=== PATIENT | female | born 1975 | race African-American/Black ===

== ENCOUNTER 2017-07-05 16:26 | Inpatient (IN) | payer OTHER ==
[2017-07-05 17:20] VITALS: BMI 32.4
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
[2017-07-05] MEDS ORDERED: P-EPHED 60MG/TRIPROLIDI 2.5MG TABLET PO PRN (18:02)
[2017-07-05] MEDS ORDERED: MAG HYDROX/AL HYDROX/SIMETH 30 ML UNIT-DOSE CUP PO PRN (18:02)
[2017-07-05] MEDS ORDERED: MENTHOL/PHENOL 1 EACH UD MM PRN (18:02)
[2017-07-05] MEDS ORDERED: IBUPROFEN 400 MG TABLET (FP) PO PRN (18:02)
[2017-07-05] MEDS ORDERED: MAGNESIUM HYDROX 2400MG/30ML ORAL SUSPENSION 30 ML CUP PO PRN (18:02)
[2017-07-05] MEDS ORDERED: MAGNESIUM CITRATE 300 ML BOTTLE PO PRN (18:02)
[2017-07-05] MEDS ORDERED: guaiFENesin/D-METHORPHAN HB 10 ML UNIT-DOSE CUPS PO PRN (18:02)
[2017-07-05] MEDS ORDERED: ALBUTEROL SO4 18 GM HFA INHALER IH PRN (18:04)
[2017-07-05] MEDS ORDERED: NYSTATIN 100,000 UNIT/GM TOPICAL CREAM 15 GM TUBE TP SCH (22:00)
[2017-07-05] MEDS ORDERED: hydrOXYzine HCL 25 MG TABLET (FP) PO SCH (22:00)
[2017-07-05] MEDS ORDERED: TUBERCULIN PPD 5 TU/0.1ML VIAL ID ONE (23:03)
[2017-07-05 23:21] LABS: URINE APPEARANCE CLOUDY; URINE BILIRUBIN NEGATIVE (NEGATIVE); URINE BLOOD NEGATIVE (NEGATIVE); URINE COLOR YELLOW; URINE GLUCOSE (UA) NEGATIVE (NEGATIVE); URINE KETONE TRACE (NEGATIVE); URINE LEUK ESTERASE NEGATIVE (NEGATIVE); URINE NITRITE NEGATIVE (NEGATIVE); URINE PROTEIN NEGATIVE (NEGATIVE); URINE UROBILINOGEN NEGATIVE mg/dL (0.2-1.0)
[2017-07-05] MEDS: hydrOXYzine PAMOATE 50 MG CAPSULE (FP) PO PRN (23:32)
[2017-07-05] MEDS: THIAMINE HCL 100 MG TABLET (FP) PO SCH (23:32)
[2017-07-05] MEDS: PREGABALIN 100 MG CAPSULE PO SCH (23:32)
[2017-07-05] MEDS: LITHIUM CARBONATE 300 MG CAPSULE (FP) PO SCH (23:32)
[2017-07-05] MEDS: HYDROCORTISONE 2.5% TOPICAL CREAM 30 GM TUBE RC SCH (23:33)
[2017-07-05] MEDS: POLYETHYLENE GLYCOL 3350 119 GM BTL PO SCH (23:34)
[2017-07-05] MEDS: NYSTATIN/TRIAMCINOLONE TOPICAL CREAM 15 GM TUBE TP SCH (23:35)
[2017-07-06] MEDS: POLYETHYLENE GLYCOL 3350 119 GM BTL PO SCH ×3 (08:11→21:15)
[2017-07-06] MEDS: NICOTINE POLACRILEX 4 MG GUM BC PRN ×4 (09:54→21:19)
[2017-07-06] MEDS: PRENATAL VITAMINS W/ FOLIC ACID TABLET (FP) PO SCH (09:54)
[2017-07-06] MEDS: NYSTATIN/TRIAMCINOLONE TOPICAL CREAM 15 GM TUBE TP SCH ×2 (09:55→21:16)
[2017-07-06] MEDS: HYDROCORTISONE 2.5% TOPICAL CREAM 30 GM TUBE RC SCH ×2 (09:55→21:14)
[2017-07-06] MEDS: LITHIUM CARBONATE 300 MG CAPSULE (FP) PO SCH ×2 (09:55→21:14)
[2017-07-06] MEDS: PREGABALIN 100 MG CAPSULE PO SCH ×2 (09:56→21:14)
[2017-07-06] MEDS ORDERED: DICLOFENAC SODIUM 75 MG TABLET.DR PO SCH ×2 (10:00)
[2017-07-06] MEDS ORDERED: DICLOFENAC SODIUM 75 MG TABLET.DR PO ONE (10:00)
[2017-07-06 10:11] LABS: MCH 28.6 pg (25.7-33.7); MCHC 33.2 g/dl (32.0-36.0); MEAN CELL VOLUME 86.1 fl (80-96); MEAN PLT VOLUME 6.9 fl (7.5-11.1); PLATELET COUNT 501 K/MM3 (134-434); RDW 15.4 % (11.6-15.6)
[2017-07-06 10:33] LABS: URINE LEUK ESTERASE Negative (NEGATIVE)
[2017-07-06] MEDS: MESALAMINE PO SCH (10:43)
[2017-07-06 10:56] LABS: ALK PHOS 69 U/L (45-117); ANION GAP 7 (8-16); BILIRUBIN,TOTAL 0.2 mg/dL (0.2-1.0); CALCIUM 8.6 mg/dL (8.5-10.1); CO2 26 mmol/L (21-32); CREATININE 0.7 mg/dL (0.55-1.02); GLUCOSE,RANDOM 89 mg/dL (74-106); SGOT/AST 11 U/L (15-37); SGPT/ALT 18 U/L (12-78); TOT PROT 7.6 g/dl (6.4-8.2)
[2017-07-06] MEDS ORDERED: COLLOIDAL OATMEAL 1 BAR EACH TP PRN (11:24)
--- NOTE | 2017-07-06 19:03 | EKG ---
Test Reason : Blood Pressure : / mmHG Vent. Rate : 078 BPM Atrial Rate : 078 BPM P-R Int : 146 ms QRS Dur : 076 ms QT Int : 396 ms P-R-T Axes : 064 058 040 degrees QTc Int : 451 ms NORMAL SINUS RHYTHM NORMAL ECG NO PREVIOUS ECGS AVAILABLE Confirmed by MD NIA, CHANA ([id number]) on 07/06/2017 7:03:04 PM Referred By: Confirmed By:CHANA KRAMER MD
[2017-07-06] MEDS: THIAMINE HCL 100 MG TABLET (FP) PO SCH (21:13)
[2017-07-06] MEDS: risperiDONE 0.25 MG TABLET (FP) PO SCH (21:17)
[2017-07-06] MEDS: hydrOXYzine PAMOATE 50 MG CAPSULE (FP) PO PRN (21:19)
[2017-07-07] MEDS ORDERED: PT OWN MED DRAWER 7, Y5N ONE ×2 (05:25→12:29)
[2017-07-07] MEDS: POLYETHYLENE GLYCOL 3350 119 GM BTL PO SCH ×3 (06:43→21:11)
[2017-07-07] MEDS: NICOTINE POLACRILEX 4 MG GUM BC PRN ×3 (06:45→19:07)
[2017-07-07] MEDS: DICLOFENAC SODIUM 75 MG TABLET.DR PO SCH (08:24)
[2017-07-07] MEDS: LITHIUM CARBONATE 300 MG CAPSULE (FP) PO SCH ×2 (09:48→21:09)
[2017-07-07] MEDS: PRENATAL VITAMINS W/ FOLIC ACID TABLET (FP) PO SCH (09:49)
[2017-07-07] MEDS: PREGABALIN 100 MG CAPSULE PO SCH ×2 (09:49→21:09)
[2017-07-07] MEDS: MESALAMINE PO SCH (09:50)
[2017-07-07] MEDS: HYDROCORTISONE 2.5% TOPICAL CREAM 30 GM TUBE RC SCH ×2 (09:50→21:10)
[2017-07-07] MEDS: NYSTATIN/TRIAMCINOLONE TOPICAL CREAM 15 GM TUBE TP SCH ×2 (09:50→21:11)
[2017-07-07] MEDS: ELVITEG/COB/EMTRI/TENOF (GENVOYA) TABLET (NF) PO SCH (13:15)
[2017-07-07] MEDS: LOPERAMIDE HCL 2 MG CAPSULE PO PRN (13:15)
[2017-07-07] MEDS: risperiDONE 0.25 MG TABLET (FP) PO SCH (21:09)
[2017-07-07] MEDS: THIAMINE HCL 100 MG TABLET (FP) PO SCH (21:09)
[2017-07-08] MEDS: ACETAMINOPHEN 325 MG TABLET (FP) PO PRN ×3 (06:20→20:01)
[2017-07-08] MEDS: NICOTINE POLACRILEX 4 MG GUM BC PRN ×4 (06:22→18:02)
[2017-07-08] MEDS: LOPERAMIDE HCL 2 MG CAPSULE PO PRN ×2 (06:23→13:58)
[2017-07-08] MEDS: POLYETHYLENE GLYCOL 3350 119 GM BTL PO SCH ×2 (06:24→13:56)
[2017-07-08] MEDS: DICLOFENAC SODIUM 75 MG TABLET.DR PO SCH (07:39)
[2017-07-08] MEDS: PREGABALIN 100 MG CAPSULE PO SCH ×2 (10:28→21:21)
[2017-07-08] MEDS: PRENATAL VITAMINS W/ FOLIC ACID TABLET (FP) PO SCH (10:28)
[2017-07-08] MEDS: ELVITEG/COB/EMTRI/TENOF (GENVOYA) TABLET (NF) PO SCH (10:28)
[2017-07-08] MEDS: LITHIUM CARBONATE 300 MG CAPSULE (FP) PO SCH ×2 (10:28→21:21)
[2017-07-08] MEDS: HYDROCORTISONE 2.5% TOPICAL CREAM 30 GM TUBE RC SCH ×2 (10:29→21:22)
[2017-07-08] MEDS: MESALAMINE PO SCH (10:33)
[2017-07-08] MEDS: NYSTATIN/TRIAMCINOLONE TOPICAL CREAM 15 GM TUBE TP SCH ×2 (10:33→21:22)
[2017-07-08] MEDS ORDERED: ALBUTEROL SO4 0.083% IH SOL 2.5 MG/3 ML VIAL.NEB. NEB PRN (11:37)
--- NOTE | 2017-07-08 12:02 | PN ---
Progress Note (short form) - Note Progress Note: c/o diarrhea 3 large loose nonbloody movements today. says she had a laproscopic surgery in [place] last month for "small bowel plastered to her colon" and for "biopsies on black lesions on the colon." she received iv abx during the hospitalization, does not recall type or duration denies hematochezia, n/v, fevers, chills, cough, dysuria, hematuria Vital Signs - 24 hr 07/08/17 07/08/17 07/08/17 00:30 03:21 06:47 Temperature 102.4 F H Pulse Rate 101 H Respiratory 18 18 18 Rate Blood Pressure 105/69 07/08/17 07/08/17 07:39 09:07 Temperature 99.7 F H 98.4 F Pulse Rate 96 H Respiratory Rate Blood Pressure 97/68 PE: abd: soft, nontender, nondistended, well-healed laproscopic scars, + normoactive bowel sounds in all 4 quadrants lungs: CTAB CV: s1, s2, no mrg Plan: holding miralax and citroma, pt was on abx w/in last 3 months, if no relief with holding miralax, will investigate for cdiff afebrile on repeat monitoring, due to substance withdrawal vs infectious cause vs ulcerative colitis's flare if fever >100.4, plan to repeat labs, sepsis w/u for uti/chest xry/blood cx/ stool cx, [facility]-up monitor off abx for now Problem List - Problems (1) Asthma Code(s): J45.909 - UNSPECIFIED ASTHMA, UNCOMPLICATED Qualifiers: Asthma severity: mild (2) Cocaine dependence Code(s): F14.20 - COCAINE DEPENDENCE, UNCOMPLICATED Qualifiers: Substance use status: uncomplicated Qualified Code(s): F14.20 - Cocaine dependence, uncomplicated (3) HIV (human immunodeficiency virus infection) Code(s): B20 - HUMAN IMMUNODEFICIENCY VIRUS [HIV] DISEASE (4) Ulcerative colitis Code(s): K51.90 - ULCERATIVE COLITIS, UNSPECIFIED, WITHOUT COMPLICATIONS Qualifiers: Ulcerative colitis location: unspecified ulcerative colitis location Digestive disease complication type: unspecified complication Qualified Code(s ): K51.919 - Ulcerative colitis, unspecified with unspecified complications
[2017-07-08] MEDS ORDERED: POTASSIUM CHLORIDE TABS 20 MEQ TABLET.ER (FP) PO ONE (14:59)
[2017-07-08] MEDS: THIAMINE HCL 100 MG TABLET (FP) PO SCH (21:21)
[2017-07-08] MEDS: risperiDONE 0.25 MG TABLET (FP) PO SCH (21:21)
[2017-07-09] MEDS: DICLOFENAC SODIUM 75 MG TABLET.DR PO SCH (07:00)
[2017-07-09] MEDS: PRENATAL VITAMINS W/ FOLIC ACID TABLET (FP) PO SCH (09:30)
[2017-07-09] MEDS: PREGABALIN 100 MG CAPSULE PO SCH ×2 (09:30→22:02)
[2017-07-09] MEDS: ACETAMINOPHEN 325 MG TABLET (FP) PO PRN ×2 (09:30→20:41)
[2017-07-09] MEDS: LITHIUM CARBONATE 300 MG CAPSULE (FP) PO SCH ×2 (09:30→22:02)
[2017-07-09] MEDS: ELVITEG/COB/EMTRI/TENOF (GENVOYA) TABLET (NF) PO SCH (09:30)
[2017-07-09] MEDS: MESALAMINE PO SCH (09:32)
[2017-07-09] MEDS: HYDROCORTISONE 2.5% TOPICAL CREAM 30 GM TUBE RC SCH ×2 (10:13→22:02)
[2017-07-09] MEDS: NYSTATIN/TRIAMCINOLONE TOPICAL CREAM 15 GM TUBE TP SCH ×2 (10:13→22:02)
[2017-07-09 14:24] LABS: BASO % 0.3 % (0-2.0); EOS % 0.9 % (0-4.5); MCH 28.1 pg (25.7-33.7); MCHC 32.5 g/dl (32.0-36.0); MEAN CELL VOLUME 86.7 fl (80-96); MEAN PLT VOLUME 7.1 fl (7.5-11.1); NEUT % 71.7 % (42.8-82.8); PLATELET COUNT 507 K/MM3 (134-434); RDW 15.9 % (11.6-15.6)
[2017-07-09 14:41] LABS: ALBUMIN 2.6 g/dl (3.4-5.0); ALK PHOS 66 U/L (45-117); ANION GAP 11 (8-16); BILIRUBIN,TOTAL 0.5 mg/dL (0.2-1.0); CALCIUM 8.6 mg/dL (8.5-10.1); CO2 22 mmol/L (21-32); CREATININE 1.2 mg/dL (0.55-1.02); GLUCOSE,RANDOM 150 mg/dL (74-106); SGOT/AST 11 U/L (15-37); SGPT/ALT 20 U/L (12-78); TOT PROT 7.3 g/dl (6.4-8.2)
[2017-07-09] MEDS: LOPERAMIDE HCL 2 MG CAPSULE PO PRN (15:32)
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
[2017-07-09] MEDS ORDERED: PT OWN MED DRAWER 7, Y5N ONE (19:42)
[2017-07-09] MEDS: risperiDONE 0.25 MG TABLET (FP) PO SCH (22:02)
[2017-07-09] MEDS: THIAMINE HCL 100 MG TABLET (FP) PO SCH (22:02)
[2017-07-10] MEDS ORDERED: PT OWN MED DRAWER 7, Y5N ONE ×2 (05:52→08:33)
[2017-07-10] MEDS: ACETAMINOPHEN 325 MG TABLET (FP) PO PRN (06:55)
[2017-07-10] MEDS: LOPERAMIDE HCL 2 MG CAPSULE PO PRN (06:57)
[2017-07-10] MEDS: DICLOFENAC SODIUM 75 MG TABLET.DR PO SCH (07:05)
[2017-07-10 07:37] VITALS: BP 115/72; PULSE 109; TEMP 102.6
[2017-07-10] MEDS: MESALAMINE PO SCH (10:13)
[2017-07-10] MEDS: PREGABALIN 100 MG CAPSULE PO SCH ×2 (10:14→23:06)
[2017-07-10] MEDS: ELVITEG/COB/EMTRI/TENOF (GENVOYA) TABLET (NF) PO SCH (10:14)
[2017-07-10] MEDS: PRENATAL VITAMINS W/ FOLIC ACID TABLET (FP) PO SCH (10:14)
[2017-07-10] MEDS: LITHIUM CARBONATE 300 MG CAPSULE (FP) PO SCH ×2 (10:15→23:05)
[2017-07-10] MEDS: NYSTATIN/TRIAMCINOLONE TOPICAL CREAM 15 GM TUBE TP SCH ×2 (10:15→23:06)
[2017-07-10] MEDS: HYDROCORTISONE 2.5% TOPICAL CREAM 30 GM TUBE RC SCH ×2 (10:15→23:05)
--- NOTE | 2017-07-10 13:05 | PN ---
[facility] Progress Note (SOAP) Subjective: Patient has been febrile for the past 4 days with temp 102.6 for the past 24 hours. She's HIV + on Genvoya and has Ulcerative Colitis on Mesalamine. Pt. had recent colonoscopy & laparoscopic procedure at [facility] on 06/20/17 , she does not have results yet. Vital Signs - 24 hr 07/09/17 07/09/17 07/10/17 17:19 20:45 00:06 Temperature 101.6 F H 102.6 F H 97.9 F Pulse Rate 101 H 118 H Respiratory 18 18 Rate Blood Pressure 123/90 102/71 07/10/17 07/10/17 07/10/17 00:30 03:30 07:37 Temperature 102.6 F H Pulse Rate 109 H Respiratory 18 18 18 Rate Blood Pressure 115/72 Laboratory Tests 07/05/17 07/06/17 07/06/17 23:10 07:00 07:00 WBC 6.0 RBC 3.56 L Hgb 10.2 L Hct 30.7 L MCV 86.1 MCH 28.6 MCHC 33.2 RDW 15.4 Plt Count 501 H MPV 6.9 L Absolute Neuts (auto) Absolute Lymphs (auto) Absolute Monos (auto) Absolute Eos (auto) Absolute Basos (auto) Neutrophils % Lymphocytes % Monocytes % Eosinophils % Basophils % Sodium 140 Potassium 3.4 L Chloride 107 Carbon Dioxide 26 Anion Gap 7 L BUN 9 Creatinine 0.7 Creat Clearance w eGFR > 60 Random Glucose 89 Calcium 8.6 Total Bilirubin 0.2 AST 11 L ALT 18 Alkaline Phosphatase 69 Total Protein 7.6 Albumin 3.0 L Urine Color Yellow Urine Appearance Cloudy Urine pH 6.0 Ur Specific [place] 1.026 Urine Protein Negative Urine Glucose (UA) Negative Urine Ketones Trace H Urine Blood Negative Urine Nitrite Negative Urine Bilirubin Negative Urine Urobilinogen Negative Ur Leukocyte Esterase Negative RPR Titer 07/06/17 07/09/17 07/09/17 07:00 10:30 10:30 WBC 9.0 D RBC 3.68 Hgb 10.4 L Hct 31.9 L MCV 86.7 MCH 28.1 MCHC 32.5 RDW 15.9 H Plt Count 507 H MPV 7.1 L Absolute Neuts (auto) No Result Required. Absolute Lymphs (auto) No Result Required. Absolute Monos (auto) No Result Required. Absolute Eos (auto) No Result Required. Absolute Basos (auto) No Result Required. Neutrophils % 71.7 Lymphocytes % 14.9 Monocytes % 12.2 H Eosinophils % 0.9 Basophils % 0.3 Sodium 135 L Potassium 3.8 Chloride 102 Carbon Dioxide 22 Anion Gap 11 BUN 10 Creatinine 1.2 H D Creat Clearance w eGFR 49.51 Random Glucose 150 H D Calcium 8.6 Total Bilirubin 0.5 D AST 11 L ALT 20 Alkaline Phosphatase 66 Total Protein 7.3 Albumin 2.6 L Urine Color Urine Appearance Urine pH Ur Specific [place] Urine Protein Urine Glucose (UA) Urine Ketones Urine Blood Urine Nitrite Urine Bilirubin Urine Urobilinogen Ur Leukocyte Esterase RPR Titer Nonreactive WBC trending up Dx. : R/O infective process P : Transfer to ED for evaluation Report given to ARIANNA Garnica
[2017-07-10] MEDS: risperiDONE 0.25 MG TABLET (FP) PO SCH (23:07)
[2017-07-10] MEDS: THIAMINE HCL 100 MG TABLET (FP) PO SCH (23:07)
== END 2017-07-10 23:04 | disposition short-term general hospital (02) | DRG 895 ==
LOC: YASAS 16:26 → Y3E 18:26
PROVIDERS: ADMIT Psychiatry & Neurology Psychiatry; ATTEND Psychiatry & Neurology Psychiatry
PROC: HZ42ZZZ Group Counseling for Substance Abuse Treatment, Cognitive-Behavioral (ICD-10-PCS; principal; 2017-07-05)
DX: F19.230 Other psychoactive substance dependence with withdrawal, uncomplicated (principal); F14.20 Cocaine dependence, uncomplicated; K51.919 Ulcerative colitis, unspecified with unspecified complications; F10.10 Alcohol abuse, uncomplicated; F43.10 Post-traumatic stress disorder, unspecified; F31.9 Bipolar disorder, unspecified; J45.30 Mild persistent asthma, uncomplicated; J44.9 Chronic obstructive pulmonary disease, unspecified; Z21 Asymptomatic human immunodeficiency virus [HIV] infection status; D64.9 Anemia, unspecified; B99.9 Unspecified infectious disease; R50.9 Fever, unspecified; Z91.010 Allergy to peanuts; Z91.018 Allergy to other foods; Z87.891 Personal history of nicotine dependence; Z91.5 Personal history of self-harm
CPT/HCPCS: 36415; 80053; 81003; 85025; 85027; 86593; 93005; 93010

== ENCOUNTER 2017-07-10 14:38 | Inpatient (IN) | payer OTHER ==
--- NOTE | 2017-07-10 14:57 | PDOC ---
History of Present Illness - General Chief Complaint: Diarrhea Stated Complaint: DIARRHEA Time Seen by Provider: 07/10/17 14:47 - History of Present Illness Initial Comments: 07/10/17 15:36 The patient is a 42 year old female with a history of HIV, UC, alcohol abuse, cocaine abuse who presents from rehab for evaluation of fevers and diarrhea. The patient reports a 4 day history of multiple episodes of diarrhea as well as fevers to 102 prompting her presentation to the ED today for evaluation. She reported that she had a procedure done at [facility] 1 month ago, but is unclear on the details. We discussed her case with the physicians at [facility] who informed us that the patient had a ex lap performed due to concerns for intussuption on CT scan, but was found to have enteritis. Blood cultures were never drawn, but the patient did receive antibiotics due to the enteritis. She denies any vomiting, but does not some nausea. She denies SOB, chest pain, abdominal pain, or changes with urination. She notes that her last viral load was undetectable, but is unsure of her last CD4 count. Past History - Past Medical History Allergies/Adverse Reactions: Allergies Allergy/AdvReac Type Severity Reaction Status Date / Time nut - unspecified Allergy Verified 07/05/17 17:46 raw vegetable Allergy Verified 07/05/17 17:46 shellfish derived Allergy Verified 07/05/17 17:46 Home Medications: Ambulatory Orders Albuterol Sulfate Inhaler - [Ventolin Hfa Inhaler -] 2 inh PO Q4H PRN 07/05/17 Diclofenac Sodium [Voltaren -] 75 mg PO DAILY 07/05/17 Elviteg/Cob/Emtri/Tenof Alafen [Genvoya (Non-Formulary)] 1 each PO DAILY Hydrocortisone 2.5% Topical Cr [Anusol 2.5% Hc Cream -] 1 applic RC BID Hydroxyzine HCl [Atarax -] 50 mg PO HS 07/05/17 [place] Carbonate [Eskalith -] 600 mg PO BID 07/05/17 Mesalamine [Apriso] 4 cap PO DAILY 07/05/17 Nystatin Cream [Mycostatin] 1 applic TP BID 07/05/17 Polyethylene Glycol 3350 [Purelax] 17 gm PO TID 07/05/17 Pregabalin [Lyrica -] 200 mg PO BID 07/05/17 Risperidone [Risperdal -] 0.25 mg PO HS 07/05/17 Triamcinolone Acet 0.1% Cream [Aristocort] 0 gm TP BID 07/05/17 Anemia: Yes (folic acid ) Asthma: Yes Cancer: No Cardiac Disorders: No CVA: No COPD: Yes CHF: No Dementia: No Diabetes: No GI Disorders: Yes (ULCERATIVE COLITIS) Disorders: No HTN: No Hypercholesterolemia: No Kidney Stones: Yes Liver Disease: No Seizures: No Thyroid Disease: No - Surgical History Abdominal Surgery: Yes (colon resection/anal fistula) Orthopedic Surgery: Yes (right ulner sx) - Reproductive History PID: No - Suicide/Smoking/Psychosocial Hx Smoking History: Former smoker Have you smoked in the past 12 months: No If you are a former smoker, when did you quit?: a year ago Information on smoking cessation initiated: No Hx Alcohol Use: No Drug/Substance Use Hx: No Substance Use Type: Alcohol, Cocaine Hx Substance Use Treatment: No (this is her first inpatient treatment) Review of Systems - Review of Systems Comments:: 07/10/17 15:52 Constitutional: Fevers. No chills, fatigue, malaise HEENT: No Rhinorrhea, nasal congestion, visual changes Cardiovascular: Lightheadedness. No chest pain, syncope, palpitations, Respiratory: No Cough, SOB, Hemoptysis, Gastrointestinal: Nausea, diarrhea. No Abdominal pain, Vomiting, Constipation, Melena Genitourinary: No Dysuria, Frequency, Urgency, Hesitancy, Hematuria, Flank pain Musculoskeletal: No Myalgia, arthralgia Skin: No rashes, bruising, pallor Neurologic: No Headache, Dizziness, Numbness, Weakness, or Tingling Psychiatric: No Hallucinations. No SI or HI *Physical Exam - Vital Signs Last Vital Signs Temp Pulse Resp BP Pulse Ox 99.3 F 85 20 126/78 99 07/10/17 14:42 07/10/17 14:42 07/10/17 14:42 07/10/17 14:42 07/10/17 14:42 - Physical Exam Comments: 07/10/17 15:54 General Appearance: Nourished. No Apparent Distress HEENT: EOMI, DARLIN. No Pharyngeal Erythema, Tonsillar Exudate, Tonsillar Erythema Neck: No Cervical Lymphadenopathy Respiratory/Chest: Lungs Clear, Normal Breath Sounds. No Crackles, Rales, Rhonchi, Wheezing Cardiovascular: Regular Rhythm, Regular Rate. No Murmur, Gallops, Rubs Gastrointestinal/Abdominal: Normal Bowel Sounds, Soft. No Guarding, Rebound, Tenderness Musculoskeletal: No CVA Tenderness Extremity: Normal Capillary Refill Integumentary: Normal Color, Dry, Warm Neurologic: Fully Oriented, Alert, Normal Mood/Affect, Normal Response, ED Treatment Course - LABORATORY CBC & Chemistry Diagram: 07/10/17 15:30 07/10/17 15:30 Medical Decision Making - Medical Decision Making 07/10/17 15:57 The patient is a 42 year old female with a history of HIV, UC, alcohol abuse, cocaine abuse who presents from rehab for evaluation of fevers and diarrhea. Differential includes but is not limited to: Withdrawal, UC flair, Infectious colitis, metabolic derangement. Given the patient's physical exam it is likely the patient either has a viral gastroenteritis or experiencing withdrawal symptoms. However, given her recent ex lap procedure with antibiotic use, we will obtain a cbc, cmp, lactate, type and screen, chest plain film, ct abdomen pelvis, ua to evaluate for other etiologies. We will treat with iv fluids in the meantime and continue to monitor and reassess. 07/10/17 23:26 cbc demonstrates a wbc elevation to 13.1. cmp, lactate, ua were unremarkable. Stool for occult blood was positive. CT abdomen pelvis was concerning for diffuse colitis vs. UC as read by the oncall radiologist pending official radiology read. We discussed the case with Dr. Hooper with GI who agrees to consult on the patient and recommends antibiotic coverage, but to hold off on steriods given the patient's HIV status, some other infectious process could be occurring. He will come evaluate the patient tomorrow. We have discussed the case with the hospitalist team who have accepted the patient for admission. We discussed the results and the plan with the patient who voiced understanding and is agreeable with the plan. *DC/Admit/Observation/Transfer Diagnosis at time of Disposition: Infective colitis Ulcerative colitis Qualifiers: Ulcerative colitis location: unspecified ulcerative colitis location Digestive disease complication type: unspecified complication Qualified Code(s): K51.919 - Ulcerative colitis, unspecified with unspecified complications - Discharge Dispostion Condition at time of disposition: Guarded Admit: Yes - Referrals - Patient Instructions - Post Discharge Activity
--- NOTE | 2017-07-10 15:00 | PDOC ---
Attending Attestation - HPI HPI: 07/10/17 15:43 The patient is a 42 year old female with a significant PMH of ulcerative colitis , HIV, and alcohol & cocaine use who presents to the emergency department from [facility] with fever and diarrhea beginning approximately 4 days ago. The patient notes her fever was T. max 102F. She describes her diarrhea as liquid and notes having to relieve herself about every 5 minutes. She also notes intermittently slightly bloody stool with her diarrhea. She reports associated nausea and decreased appetite with her fever but denies vomiting. She reports taking Acetaminophen earlier today to some relief. Allergies: NKDA - Physicial Exam PE: 07/10/17 15:44 GENERAL: Awake, alert, and fully oriented, in no acute distress HEAD: No signs of trauma EYES: PERRLA, EOMI, sclera anicteric, conjunctiva clear ENT: Auricles normal inspection, hearing grossly normal, nares patent, oropharynx clear without exudates. Moist mucosa NECK: Normal ROM, supple, no lymphadenopathy, JVD, or masses LUNGS: Breath sounds equal, clear to auscultation bilaterally. No wheezes, and no crackles HEART: Regular rate and rhythm, normal S1 and S2, no murmurs, rubs or gallops ABDOMEN: (+) Lower abdominal tenderness. Soft, normoactive bowel sounds. No guarding, no rebound. No masses EXTREMITIES: Normal range of motion, no edema. No clubbing or cyanosis. No cords, erythema, or tenderness NEUROLOGICAL: Cranial nerves II through XII grossly intact. Normal speech, normal gait SKIN: Warm, Dry, normal turgor, no rashes or lesions noted. <Kiran Lema - Last Filed: 07/10/17 15:43> - Resident Resident Name: Jaime Hyde - ED Attending Attestation I have performed the following: I have examined & evaluated the patient, The case was reviewed & discussed with the resident, I agree w/resident's findings & plan, Exceptions are as noted - Medical Decision Making 07/10/17 14:59 I, Dr. Nancy Khan, DO, attest that this document has been prepared under my direction and personally reviewed by me in its entirety. I further attest, that it accurately reflects all work, treatment, procedures and medical decision -making performed by me. 07/10/17 16:02 a/p: 42yo female with diarrhea w blood x 4 days -recent hospitalization at [facility] with ex lap for poss intussusception that ended up with enteritis -HIV + (treated in [facility]), per patient, last viral load negative, unsure of CD4 count -received abx at [place] -will check labs, stool studies, c diff (given mucousy stool that is watery and recent hospitalization and abx) -will obtain ct abd/pelvis -will give IVF hydration 07/10/17 16:46 pt signed out to the oncoming ED physician pending labs, ct and further eval of diarrhea <Nancy Khan - Last Filed: 07/10/17 16:46> Heart Score/ECG Review - ECG Intrepretation Comment:: 07/10/17 16:22 sinus tach at 100, nl axis, nl interval, no acute st/t wave findings <Nancy Khan - Last Filed: 07/10/17 16:46>
[2017-07-10] MEDS ORDERED: SODIUM CHLORIDE 1,000 ML IV STA (15:18)
[2017-07-10 16:01] LABS: BASO % 0.2 % (0-2.0); EOS # 0.1 # (0-4.5); MCH 27.7 pg (25.7-33.7); MCHC 32.1 g/dl (32.0-36.0); MEAN CELL VOLUME 86.1 fl (80-96); MEAN PLT VOLUME 7.1 fl (7.5-11.1); NEUT # 9.9 # (42.8-82.8); NEUT % 75.8 % (42.8-82.8); PLATELET COUNT 489 K/MM3 (134-434); RDW 15.8 % (11.6-15.6); WHITE BLOOD COUNT 13.1 K/mm3 (4.0-10.0)
[2017-07-10 16:15] LABS: INR 1.33 (0.82-1.09)
[2017-07-10 16:18] LABS: ACTIVATED PTT 29.2 SECONDS (26.9-34.4)
[2017-07-10] MEDS ORDERED: ACETAMINOPHEN 1000 MG/100 ML VIAL (NON FORMULARY) IVPB ONE (16:24)
[2017-07-10 16:26] LABS: ALBUMIN 2.7 g/dl (3.4-5.0); ANION GAP 6 (8-16); BILIRUBIN,TOTAL 0.4 mg/dL (0.2-1.0); CALCIUM 8.7 mg/dL (8.5-10.1); CO2 28 mmol/L (21-32); CPK 20 IU/L (26-192); CREATININE 1.3 mg/dL (0.55-1.02); GLUCOSE,RANDOM 98 mg/dL (74-106); SGOT/AST 14 U/L (15-37); SGPT/ALT 23 U/L (12-78); TOT PROT 7.8 g/dl (6.4-8.2)
[2017-07-10 16:28] LABS: ALK PHOS 72 U/L (45-117); TROPONIN I < 0.02 ng/ml (0.00-0.05)
[2017-07-10] MEDS ORDERED: ACETAMINOPHEN INJECTION 100 ML IVPB ONE (16:41)
[2017-07-10] MEDS ORDERED: ONDANSETRON 4 MG/2 ML VIAL IVPUSH ONE (17:34)
[2017-07-10] MEDS ORDERED: ONDANSETRON 4 MG/2 ML VIAL ONE (17:40)
[2017-07-10 17:54] LABS: URINE APPEARANCE CLOUDY; URINE BILIRUBIN NEGATIVE (NEGATIVE); URINE BLOOD NEGATIVE (NEGATIVE); URINE COLOR AMBER; URINE GLUCOSE (UA) NEGATIVE (NEGATIVE); URINE KETONE NEGATIVE (NEGATIVE); URINE LEUK ESTERASE NEGATIVE (NEGATIVE); URINE NITRITE NEGATIVE (NEGATIVE); URINE PROTEIN NEGATIVE (NEGATIVE); URINE UROBILINOGEN NEGATIVE mg/dL (0.2-1.0)
[2017-07-10] MEDS ORDERED: morphine CARPU-JECT 4 MG/1 ML DISP.SYRIN IVPUSH ONE ×2 (18:35→23:26)
[2017-07-10] MEDS ORDERED: morphine CARPU-JECT 8 MG/1 ML DISP.SYRIN ONE ×2 (18:45→23:15)
[2017-07-10 20:45] LABS: URINE LEUK ESTERASE Negative (NEGATIVE)
[2017-07-10] MEDS ORDERED: METRONIDAZOLE 500 MG PREMIXED 500 MG/100 ML MG IVPB ONE ×2 (22:20→22:59)
[2017-07-10] MEDS ORDERED: CIPROFLOXACIN 400 MG/D5W 400 MG/200 ML IVPB IVPB ONE (22:20)
[2017-07-10] MEDS ORDERED: SODIUM CHLORIDE 1,000 ML IV ONE (23:22)
[2017-07-10] MEDS ORDERED: IBUPROFEN 600 MG TABLET (FP) PO ONE ×2 (23:30→23:31)
[2017-07-11 01:06] VITALS: BMI 32.3
--- NOTE | 2017-07-11 01:21 | PN ---
Teaching Attending Note Name of Resident: Karina Lopez ATTENDING PHYSICIAN STATEMENT I saw and evaluated the patient. I reviewed the resident's note and discussed the case with the resident. I agree with the resident's findings and plan as documented. SUBJECTIVE: OBJECTIVE: ASSESSMENT AND PLAN: patient presented with 4 days abdominal pain with watery diarrhea - patient with hx of HIV, Ulcerative colitis, substance abuse, nicotine dependance - nicorret gum, cocaine last use 1 week ago, and ex-alcohol intake plan: admit to the medicine service advance diet as tolerated obtain CD4 count, and viral load GI evaluation start ciprofloxacine q12hrs and metronidazole 500mg q8hrs send stool C. dif due to history of recent hospitalization with recent anti- biotic use IVF hydration will hold off on the prednisone until there is a clear evidence of the flair up of the ulcerative colitis
--- NOTE | 2017-07-11 01:40 | HP ---
CHIEF COMPLAINT: abdominal pain PCP: Dr Hale in [place] but pt doesn;t remember exactly the name HISTORY OF PRESENT ILLNESS: The patient is a 42 year old female with a PMH of HIV, UC, alcohol abuse, cocaine abuse, bipolar disease, COPDwho presents to the hospital complaining of diarrhea and abdominal pain that started 4 days ago. The patient reports multiple episodes of diarrhea, non bloody, watery, diffuse abdominal pain, constant, 7/10 and fever up to 102F. She reported that she had a laparoscopic procedure done at [facility] for UC but doesn't know why and what were the results. ED physicians contacted [facility] and confirmed that she was evaluated for possible intussusception but was found to have colitis and was treated with antibiotics. The pt denies sick contacts, change in dietary habits. She denies nausea, vomiting, hematuria, melena. She denies SOB, chest pain, dysuria. She notes that her last viral load was undetectable and last CD4 was over 300. She states that she is compliant with medications. ER course was notable for: (1)wbc elevation to 13.1. cmp, lactate, (2)FOBT positive (3)fever Recent Travel: no PAST MEDICAL HISTORY: HIV, UC, cocaine abuse, alcohol abuse, bipolar disease, COPD, PTSD PAST SURGICAL HISTORY: laparoscopy in june 2017 Social History: Smoking:denies Alcohol:yes, current drinker, vodka once a week Drugs: yes cocaine, last time used last weekend Two children Family History: Mother: DM, HTN Father: not known Allergies nut - unspecified Allergy (Verified 07/05/17 17:46) raw vegetable Allergy (Verified 07/05/17 17:46) shellfish derived Allergy (Verified 07/05/17 17:46) HOME MEDICATIONS: Home Medications Medication Instructions Recorded Albuterol Sulfate Inhaler - 2 inh PO Q4H PRN 07/05/17 [Ventolin Hfa Inhaler -] Diclofenac Sodium [Voltaren -] 75 mg PO DAILY 07/05/17 Elviteg/Cob/Emtri/Tenof Alafen 1 each PO DAILY 07/05/17 [Genvoya (Non-Formulary)] Hydrocortisone 2.5% Topical Cr 1 applic RC BID 07/05/17 [Anusol 2.5% Hc Cream -] Hydroxyzine HCl [Atarax -] 50 mg PO HS 07/05/17 [place] Carbonate [Eskalith -] 600 mg PO BID 07/05/17 Mesalamine [Apriso] 4 cap PO DAILY 07/05/17 Nystatin Cream [Mycostatin] 1 applic TP BID 07/05/17 Polyethylene Glycol 3350 [Purelax] 17 gm PO TID 07/05/17 Pregabalin [Lyrica -] 200 mg PO BID 07/05/17 Risperidone [Risperdal -] 0.25 mg PO HS 07/05/17 Triamcinolone Acet 0.1% Cream 0 gm TP BID 07/05/17 [Aristocort] REVIEW OF SYSTEMS CONSTITUTIONAL: Absent: fever, chills, diaphoresis, generalized weakness, malaise, weight change HEENT: Absent: rhinorrhea, nasal congestion, throat pain, throat swelling, difficulty swallowing, mouth swelling, ear pain, eye pain, visual changes CARDIOVASCULAR: Absent: chest pain, syncope, palpitations, irregular heart rate, lightheadedness , peripheral edema RESPIRATORY: Absent: cough, shortness of breath, orthopnea, wheezing, stridor, hemoptysis GASTROINTESTINAL:abdominal pain, diarrhea Absent: nausea, vomiting, constipation, melena, hematochezia GENITOURINARY: Absent: dysuria, frequency, urgency, hesitancy, hematuria, flank pa MUSCULOSKELETAL: Absent: myalgia, arthralgia, joint swelling, back pain, neck pain SKIN: Absent: rash, itching, pallor ENDOCRINE: Absent: unexplained weight gain, unexplained weight loss, NEUROLOGIC: headache Absent: focal weakness or paresthesias, dizziness, unsteady gait, seizure PSYCHIATRIC: Absent: anxiety, depression, PHYSICAL EXAMINATION Vital Signs - 24 hr 07/10/17 07/10/17 07/10/17 14:42 16:23 17:18 Temperature 99.3 F 102.5 F H Pulse Rate 85 Pulse Rate [ 105 H Radial] Respiratory 20 20 Rate Blood Pressure 126/78 Blood Pressure 103/64 [Left Arm] O2 Sat by Pulse 99 96 Oximetry (%) 07/10/17 07/10/17 07/11/17 18:48 23:29 00:17 Temperature 97.7 F 103 F H 102.8 F H Pulse Rate Pulse Rate [ 98 H 110 H Radial] Respiratory 20 18 Rate Blood Pressure Blood Pressure 94/54 90/64 [Left Arm] O2 Sat by Pulse 96 Oximetry (%) GENERAL: Awake, alert, and fully oriented, in no acute distress. HEAD: Normal with no signs of trauma. EYES: Pupils equal, round and reactive to light, extraocular movements intact, sclera anicteric, conjunctiva clear. No lid lag. EARS, NOSE, THROAT: oropharynx clear without exudates. Dry mucous membranes. NECK: Normal range of motion, supple without lymphadenopathy LUNGS: Breath sounds equal, clear to auscultation bilaterally. No wheezes, and no crackles. HEART: Regular rate and rhythm, normal S1 and S2 without murmur, rub or gallop. ABDOMEN: Obese, soft, nontender, distended, normoactive bowel sounds, mild guarding in LLQ, no masses. MUSCULOSKELETAL: Normal range of motion at all joints. No bony deformities or tenderness. No CVA tenderness. UPPER EXTREMITIES: 2+ pulses, warm, well-perfused. No cyanosis. No clubbing. No peripheral edema. LOWER EXTREMITIES: 2+ pulses, warm, well-perfused. No calf tenderness. No peripheral edema. NEUROLOGICAL: Normal speech, no facial asymmetry, no sensation changes, motor 5 /5. PSYCHIATRIC: Cooperative. Good eye contact. Appropriate mood and affect. SKIN: Warm, dry, normal turgor, no rashes or lesions noted, small scar in the upper part of umbilicus. Laboratory Results - last 24 hr 07/10/17 07/10/17 07/10/17 15:00 15:30 15:30 WBC 13.1 H D RBC 3.96 Hgb 11.0 Hct 34.1 MCV 86.1 MCH 27.7 MCHC 32.1 RDW 15.8 H Plt Count 489 H MPV 7.1 L Neutrophils % 75.8 Lymphocytes % 7.4 L D Monocytes % 15.6 H Eosinophils % 1.0 Basophils % 0.2 ESR PT with INR 15.00 H INR 1.33 H PTT (Actin FS) 29.2 Sodium Potassium Chloride Carbon Dioxide Anion Gap BUN Creatinine Creat Clearance w eGFR Random Glucose Lactic Acid Calcium Magnesium Total Bilirubin AST ALT Alkaline Phosphatase Creatine Kinase Troponin I C-Reactive Protein 18.6 H Total Protein Albumin Serum , Qual Urine Color Urine Appearance Urine pH Ur Specific [place] Urine Protein Urine Glucose (UA) Urine Ketones Urine Blood Urine Nitrite Urine Bilirubin Urine Urobilinogen Ur Leukocyte Esterase Stool Occult Blood Blood Type Antibody Screen 07/10/17 07/10/17 07/10/17 15:30 15:30 15:30 WBC RBC Hgb Hct MCV MCH MCHC RDW Plt Count MPV Neutrophils % Lymphocytes % Monocytes % Eosinophils % Basophils % ESR PT with INR INR PTT (Actin FS) Sodium 135 L Potassium 4.2 Chloride 101 Carbon Dioxide 28 D Anion Gap 6 L BUN 19 H D Creatinine 1.3 H Creat Clearance w eGFR 45.14 Random Glucose 98 D Lactic Acid 1.3 Calcium 8.7 Magnesium Total Bilirubin 0.4 AST 14 L D ALT 23 Alkaline Phosphatase 72 Creatine Kinase 20 L Troponin I < 0.02 C-Reactive Protein Total Protein 7.8 Albumin 2.7 L Serum , Qual Urine Color [place] Urine Appearance Cloudy Urine pH 5.0 Ur Specific [place] 1.019 Urine Protein Negative Urine Glucose (UA) Negative Urine Ketones Negative Urine Blood Negative Urine Nitrite Negative Urine Bilirubin Negative Urine Urobilinogen Negative Ur Leukocyte Esterase Negative Stool Occult Blood Blood Type Antibody Screen 07/10/17 07/10/17 07/10/17 15:30 15:30 15:30 WBC RBC Hgb Hct MCV MCH MCHC RDW Plt Count MPV Neutrophils % Lymphocytes % Monocytes % Eosinophils % Basophils % ESR PT with INR INR PTT (Actin FS) Sodium Potassium Chloride Carbon Dioxide Anion Gap BUN Creatinine Creat Clearance w eGFR Random Glucose Lactic Acid Calcium Magnesium Total Bilirubin AST ALT Alkaline Phosphatase Creatine Kinase Troponin I C-Reactive Protein Total Protein Albumin Serum , Qual Negative Urine Color Urine Appearance Urine pH Ur Specific [place] Urine Protein Urine Glucose (UA) Urine Ketones Urine Blood Urine Nitrite Urine Bilirubin Urine Urobilinogen Ur Leukocyte Esterase Stool Occult Blood Positive Blood Type O POSITIVE Antibody Screen Negative 07/10/17 07/10/17 15:30 22:50 WBC RBC Hgb Hct MCV MCH MCHC RDW Plt Count MPV Neutrophils % Lymphocytes % Monocytes % Eosinophils % Basophils % ESR 95 H PT with INR INR PTT (Actin FS) Sodium Potassium Chloride Carbon Dioxide Anion Gap BUN Creatinine Creat Clearance w eGFR Random Glucose Lactic Acid Calcium Magnesium 1.7 L Total Bilirubin AST ALT Alkaline Phosphatase Creatine Kinase Troponin I C-Reactive Protein Total Protein Albumin Serum , Qual Urine Color Urine Appearance Urine pH Ur Specific [place] Urine Protein Urine Glucose (UA) Urine Ketones Urine Blood Urine Nitrite Urine Bilirubin Urine Urobilinogen Ur Leukocyte Esterase Stool Occult Blood Blood Type Antibody Screen ASSESSMENT/PLAN: The patient is a 42 year old female with a PMH of HIV, UC, alcohol abuse, cocaine abuse who presents to the hospital complaining of diarrhea and abdominal pain that started 4 days ago. She is admitted for diarrhea and abdominal pain. Diarrhea and abdominal pain: possible due to flare up of ulcerative colitis but also c.diff colitis/ infectious will obtain stool C.Diff antigen and toxin will continue NS, Ciprofloxacin 400 mg IV BID and Flagyl 500 IVn Q8h cont Tylenol for fever and pain GI was consulted- Dr Hooper and will evaluated pt in the morning. According to conversation with ED resident he didn't recommend starting steroids now. Clear liquid diet FOBT positive will monitor CBC CT abdomen pelvis reviewed, waiting for official report Leukocytosis; possibly related to infectious process but also medication induced PETER: elevated Cr to 1.3, above baseline, continue NS avoid neprotoxic substances UC: hold Mesalamine for new, awaiting GI recommendation HIV: will hold on HAART medications for now and evaluate in AM Bipolar disorder: hold meds for now: Risperidone and [place] Alcohol abuse; no signs of withdrawal counseling conyinue hydration Cocaine abuse: counseling COPD continue home meds DVT PPX: SCDs Heparin sq F/E/N NS/no changes/Liquid Disposition: med surg Problem List - Problem (1) Infective colitis Code(s): A09 - INFECTIOUS GASTROENTERITIS AND COLITIS, UNSPECIFIED (2) Ulcerative colitis Code(s): K51.90 - ULCERATIVE COLITIS, UNSPECIFIED, WITHOUT COMPLICATIONS Qualifiers: Ulcerative colitis location: unspecified ulcerative colitis location Digestive disease complication type: unspecified complication Qualified Code(s ): K51.919 - Ulcerative colitis, unspecified with unspecified complications (3) Alcohol abuse Code(s): F10.10 - ALCOHOL ABUSE, UNCOMPLICATED (4) Asthma Code(s): J45.909 - UNSPECIFIED ASTHMA, UNCOMPLICATED Qualifiers: Asthma severity: mild (5) Bipolar disorder Code(s): F31.9 - BIPOLAR DISORDER, UNSPECIFIED (6) COPD (chronic obstructive pulmonary disease) Code(s): J44.9 - CHRONIC OBSTRUCTIVE PULMONARY DISEASE, UNSPECIFIED Qualifiers: Emphysema type: unspecified (7) Cocaine dependence Code(s): F14.20 - COCAINE DEPENDENCE, UNCOMPLICATED Qualifiers: Substance use status: uncomplicated Qualified Code(s): F14.20 - Cocaine dependence, uncomplicated (8) HIV (human immunodeficiency virus infection) Code(s): B20 - HUMAN IMMUNODEFICIENCY VIRUS [HIV] DISEASE (9) PTSD (post-traumatic stress disorder) Code(s): F43.10 - POST-TRAUMATIC STRESS DISORDER, UNSPECIFIED Visit type - Emergency Visit Emergency Visit: Yes ED Registration Date: 07/10/17 Care time: The patient presented to the Emergency Department on the above date and was hospitalized for further evaluation of their emergent condition. - New Patient This patient is new to me today: Yes Date on this admission: 07/11/17 - Critical Care Critical Care patient: No
[2017-07-11] MEDS ORDERED: IBUPROFEN 600 MG TABLET (FP) PO PRN (01:42)
[2017-07-11] MEDS: SODIUM CHLORIDE 1,000 ML IV SCH (01:55)
[2017-07-11] MEDS: METRONIDAZOLE 500 MG PREMIXED 500 MG/100 ML MG IVPB SCH ×3 (05:06→22:40)
--- NOTE | 2017-07-11 08:17 | PN ---
Progress Note, Physician Chief Complaint: ID This is a 42 year old female who I am asked to see for fever chills abd discomfrot and non bloody diarrhea going on for 4 days. HE is HIV positive since the 90s and followed in [place] by her PMD. HEr T cells on Genvoya have been around 500 consistently and her viral load surpressed. She came from the rehab unit at [facility] for crack cocaine use. She was there for 3 days and felt well upon admission. Earlier this month she had a laparoscopic intestinal biopsy at [facility] where she was admitted with severe abdominal pain. She does know the diagnosis as she was instructed to followup however she may have been told that she had ulcerative colitis. Denies travek history or other medical problems. Lives with her daughter - Current Medication List Current Medications: Active Medications Heparin Sodium (Porcine) (Heparin -) 5,000 unit SQ BID KRISHNA Sodium Chloride (Normal Saline -) 1,000 mls @ 100 mls/hr IV ASDIR [facility] Last Admin: 07/11/17 01:55 Dose: 100 mls/hr Metronidazole (Flagyl 500mg Premixed Ivpb -) 500 mg in 100 mls @ 100 mls/hr IVPB TID [facility] Last Admin: 07/11/17 05:06 Dose: 100 mls/hr Ciprofloxacin/Dextrose (Cipro 400 Mg Premix Ivpb (Restricted To Id)) 400 mg in 200 mls @ 200 mls/hr IVPB BID [facility] Ciprofloxacin/Dextrose (Cipro 400 Mg Premix Ivpb (Restricted To Id)) 400 mg in 200 mls @ 200 mls/hr IVPB ONCE ONE Stop: 07/11/17 10:59 Ibuprofen (Motrin -) 600 mg PO Q6H PRN PRN Reason: FEVER - Objective Vital Signs: Vital Signs Temperature 97.7 F 07/11/17 06:00 Pulse Rate 74 07/11/17 06:00 Respiratory Rate 20 07/11/17 06:00 Blood Pressure 93/48 07/11/17 06:00 O2 Sat by Pulse Oximetry (%) 96 07/10/17 18:48 Constitutional: Yes: Well Nourished, No Distress HENT: Yes: WNL, Atraumatic Neck: Yes: WNL, Supple Cardiovascular: Yes: Regular Rate and Rhythm, S1, S2 Respiratory: Yes: WNL, Regular, CTA Bilaterally Gastrointestinal: Yes: WNL, Normal Bowel Sounds, Soft, Other (mild tenderness). No: Distention, Tenderness, Rebound Edema: No Labs: CBC, BMP 07/10/17 15:30 07/10/17 15:30 INR, PTT INR 1.33 (0.82-1.09) H 07/10/17 15:30 Problem List - Problems (1) Infective colitis Code(s): A09 - INFECTIOUS GASTROENTERITIS AND COLITIS, UNSPECIFIED (2) Ulcerative colitis Code(s): K51.90 - ULCERATIVE COLITIS, UNSPECIFIED, WITHOUT COMPLICATIONS Qualifiers: Ulcerative colitis location: unspecified ulcerative colitis location Digestive disease complication type: unspecified complication Qualified Code(s ): K51.919 - Ulcerative colitis, unspecified with unspecified complications (3) Cocaine dependence Code(s): F14.20 - COCAINE DEPENDENCE, UNCOMPLICATED Qualifiers: Substance use status: uncomplicated Qualified Code(s): F14.20 - Cocaine dependence, uncomplicated (4) HIV (human immunodeficiency virus infection) Code(s): B20 - HUMAN IMMUNODEFICIENCY VIRUS [HIV] DISEASE Assessment/Plan Laboratory Tests 07/10/17 07/10/17 07/10/17 15:00 15:30 15:30 WBC 13.1 H D RBC 3.96 Hct 34.1 Plt Count 489 H ESR Creat Clearance w eGFR 45.14 Magnesium C-Reactive Protein 18.6 H 07/10/17 07/10/17 15:30 22:50 WBC RBC Hct Plt Count ESR 95 H Creat Clearance w eGFR Magnesium 1.7 L C-Reactive Protein Assessment Infectious colitis vs IBD in an HIV positive patient doing well from that standpoint. Crack cocaine abuse Plan Cultures include stool for C diff and enteric pathogens and Viral culture Noro IVF Clear diet Will see what we can do about her Genvoya Levoflox and metronidazole Records improtant Belle FRANCOIS
[2017-07-11] MEDS ORDERED: morphine CARPU-JECT 2 MG/1 ML DISP.SYRIN IVPUSH PRN ×2 (08:42→10:26)
[2017-07-11] MEDS ORDERED: ACETAMINOPHEN 1000 MG/100 ML VIAL (NON FORMULARY) IVPB PRN (08:45)
[2017-07-11 09:31] LABS: BASO % 0.1 % (0-2.0); EOS # 0.1 # (0-4.5); EOS % 0.8 % (0-4.5); LYMPH # 1.1 (8-40); MCH 27.7 pg (25.7-33.7); MCHC 32.5 g/dl (32.0-36.0); MEAN CELL VOLUME 85.3 fl (80-96); MEAN PLT VOLUME 7.1 fl (7.5-11.1); MONO # 2.2 # (3.8-10.2); NEUT # 10.3 # (42.8-82.8); PLATELET COUNT 485 K/MM3 (134-434); RDW 15.8 % (11.6-15.6); WHITE BLOOD COUNT 13.7 K/mm3 (4.0-10.0)
[2017-07-11] MEDS: LEVOFLOXACIN 500 MG IVPB 500 MG/100 ML BAG IVPB SCH (09:49)
[2017-07-11] MEDS: HEPARIN NA (PORCINE) 5,000 UNITS/ML 1ML VIAL SQ SCH ×2 (09:50→22:40)
[2017-07-11 09:55] LABS: ALBUMIN 2.4 g/dl (3.4-5.0); ALK PHOS 84 U/L (45-117); ANION GAP 11 (8-16); BILIRUBIN,TOTAL 0.7 mg/dL (0.2-1.0); CALCIUM 8.2 mg/dL (8.5-10.1); CO2 21 mmol/L (21-32); CREATININE 0.9 mg/dL (0.55-1.02); GLUCOSE,RANDOM 181 mg/dL (74-106); SGOT/AST 15 U/L (15-37); SGPT/ALT 26 U/L (12-78); TOT PROT 7.4 g/dl (6.4-8.2)
[2017-07-11] MEDS ORDERED: CIPROFLOXACIN 400 MG/D5W 400 MG/200 ML IVPB IVPB ONE (10:00)
[2017-07-11] MEDS: ACETAMINOPHEN 325 MG TABLET (FP) PO PRN ×3 (10:35→22:39)
--- NOTE | 2017-07-11 14:42 | PN ---
Progress Note (short form) - Note Progress Note: GI CONSULTATION: FOR DR MARIE KEE SEE COMPLETE DICTATION IN BRIEF: 42F HIV/ CHRONIC UC X 10 YEARS/ COPD/POLYSUBSTANCE ABUSE ADMIT FROM DETOX WITH FEVERS AND DIARRHEA PT IS AN EXTREMELY POOR INFORMANT AND CANNOT ELICIT ANY ACCURATE HX REGARDING HER PRIOR GI HX SUPPOSDELY DX WITH UC IN [place] 10 YEARS AGO AND HAS NEVER BEEN ON MEDICATION AND DOES NOT HAVE RECTAL BLEEDING? RECENTLY WENT TO [facility] WITH "PAIN" AND HAD COLONOSCOPY AND BX AND LAPAROSCOPY AND BX---DOESN'T MAKE SENSE UNCLEAR IF PATIENT BEING EVAL FOR INTESTINAL TB OR LYMPHOMA WHICH OFTEN MIMICKS IBD FINDING OF HIGH FEVERS UNUSUAL IN NON-TOXIC UC IT IS NOT A TRANSMURAL DISEASE IS THE LACK OF BLEEDING DIARRHEA AND FEVER IN THIS PATIENT CAN BE DUE TO MANY THINGS AND I WOULD EXPLORE AND R/O ALL INFECTIOUS CULPRITS PRIOR TO INITIATING ANY RX SUCH STEROIDS F/U ALL CX'S AND C DIFF NEEDS RECORDS FROM [facility] FOR COLON AND LAPAROSCOPY 2GM NA LOW RESIDUE, LACTOSE FREE DIET EMPIRIC ABX FOR NOW CONSIDER 5-ASA MEDS ONCE ALL CX NEG. COULD ADD IMODIUM D/C nsaids REPLACE LYTES : KCL/MG NEEDED IF UNABLE TO OBTAIN RECORDS , THEN MAY NEED DX F/S NEXT WEEK THANKS, MD BRENDA
--- NOTE | 2017-07-11 14:56 | PN ---
Teaching Attending Note Name of Resident: . ATTENDING PHYSICIAN STATEMENT Time of evaluation: 11:50 Am SUBJECTIVE: patient seen and examined, overall feels unchanged, still with fevers, watery bloody stools and abdominal pain. Tolerating PO well. OBJECTIVE: Vital Signs Period Temp Pulse Resp BP Sys/Cleaning Pulse Ox Last 24 Hr 97.7 F-103 F 74-110 18-20 90-109/48-64 96-96 Intake & Output 07/08/17 07/09/17 07/10/17 07/11/17 23:59 23:59 23:59 23:59 Intake Total 400 Balance 400 Weight 215 lb 206 lb 4.8 oz General: sitting in bed in no acute distress CVS:S1s2 regular Chest: CTAB, no rales or wheezing AbdomeN; tenderness in LUQ/LMQ/LLQ regions with mild tenderness in supra- umbilical region and lower abdomen, no voluntary or involuntary guarding or rigidity, positive bowel sounds, Extremities: no edema Home Medication List Medication Instructions Recorded Confirmed Type Albuterol Sulfate Inhaler - 2 inh PO Q4H PRN 07/05/17 07/11/17 History [Ventolin Hfa Inhaler -] Diclofenac Sodium [Voltaren -] 75 mg PO DAILY 07/05/17 07/11/17 History Elviteg/Cob/Emtri/Tenof Alafen 1 each PO DAILY 07/05/17 07/11/17 History [Genvoya (Non-Formulary)] Hydrocortisone 2.5% Topical Cr 1 applic RC BID 07/05/17 07/11/17 History [Anusol 2.5% Hc Cream -] Hydroxyzine HCl [Atarax -] 50 mg PO HS 07/05/17 07/11/17 History [place] Carbonate [Eskalith -] 600 mg PO BID 07/05/17 07/11/17 History Mesalamine [Apriso] 4 cap PO DAILY 07/05/17 07/11/17 History Nystatin Cream [Mycostatin] 1 applic TP BID 07/05/17 07/11/17 History Polyethylene Glycol 3350 [Purelax] 17 gm PO TID 07/05/17 07/11/17 History Pregabalin [Lyrica -] 200 mg PO BID 07/05/17 07/11/17 History Risperidone [Risperdal -] 0.25 mg PO HS 07/05/17 07/11/17 History Triamcinolone Acet 0.1% Cream 0 gm TP BID 07/05/17 07/11/17 History [Aristocort] Active Medications Generic Name Dose Route Start Last Admin Trade Name Freq PRN Reason Stop Dose Admin Acetaminophen 650 mg 07/11/17 10:26 07/11/17 10:35 Tylenol - PO 650 mg Q6H PRN Administration FEVER OR PAIN Heparin Sodium (Porcine) 5,000 unit 07/11/17 10:00 07/11/17 09:50 Heparin - SQ 5,000 unit BID KRISHNA Administration Sodium Chloride 1,000 mls @ 100 mls/hr 07/11/17 01:45 07/11/17 01:55 Normal Saline - IV 100 mls/hr ASDIR KRISHNA Administration Metronidazole 500 mg in 100 mls @ 100 mls/hr 07/11/17 06:00 07/11/17 14:21 Flagyl 500mg Premixed Ivpb - IVPB 100 mls/hr TID KRISHNA Administration Levofloxacin 500 mg in 100 mls @ 100 mls/hr 07/11/17 10:00 07/11/17 09:49 Levaquin 500 Mg Premixed Ivpb - IVPB 100 mls/hr DAILY KRISHNA Administration Morphine Sulfate 0.5 mg 07/11/17 10:26 Morphine Injection - IVPUSH Q4H PRN PAIN Risperidone 0.25 mg 07/11/17 22:00 Risperdal - PO [facility] Laboratory Results - last 24 hr 07/10/17 07/10/17 07/10/17 15:00 15:30 15:30 WBC 13.1 H D RBC 3.96 Hgb 11.0 Hct 34.1 MCV 86.1 MCH 27.7 MCHC 32.1 RDW 15.8 H Plt Count 489 H MPV 7.1 L Neutrophils % 75.8 Lymphocytes % 7.4 L D Monocytes % 15.6 H Eosinophils % 1.0 Basophils % 0.2 ESR PT with INR 15.00 H INR 1.33 H PTT (Actin FS) 29.2 Sodium Potassium Chloride Carbon Dioxide Anion Gap BUN Creatinine Creat Clearance w eGFR Random Glucose Lactic Acid Calcium Magnesium Total Bilirubin AST ALT Alkaline Phosphatase Creatine Kinase Troponin I C-Reactive Protein 18.6 H Total Protein Albumin Serum , Qual Urine Color Urine Appearance Urine pH Ur Specific [place] Urine Protein Urine Glucose (UA) Urine Ketones Urine Blood Urine Nitrite Urine Bilirubin Urine Urobilinogen Ur Leukocyte Esterase Stool Occult Blood Blood Type Antibody Screen 07/10/17 07/10/17 07/10/17 15:30 15:30 15:30 WBC RBC Hgb Hct MCV MCH MCHC RDW Plt Count MPV Neutrophils % Lymphocytes % Monocytes % Eosinophils % Basophils % ESR PT with INR INR PTT (Actin FS) Sodium 135 L Potassium 4.2 Chloride 101 Carbon Dioxide 28 D Anion Gap 6 L BUN 19 H D Creatinine 1.3 H Creat Clearance w eGFR 45.14 Random Glucose 98 D Lactic Acid 1.3 Calcium 8.7 Magnesium Total Bilirubin 0.4 AST 14 L D ALT 23 Alkaline Phosphatase 72 Creatine Kinase 20 L Troponin I < 0.02 C-Reactive Protein Total Protein 7.8 Albumin 2.7 L Serum , Qual Urine Color [place] Urine Appearance Cloudy Urine pH 5.0 Ur Specific [place] 1.019 Urine Protein Negative Urine Glucose (UA) Negative Urine Ketones Negative Urine Blood Negative Urine Nitrite Negative Urine Bilirubin Negative Urine Urobilinogen Negative Ur Leukocyte Esterase Negative Stool Occult Blood Blood Type Antibody Screen 07/10/17 07/10/17 07/10/17 15:30 15:30 15:30 WBC RBC Hgb Hct MCV MCH MCHC RDW Plt Count MPV Neutrophils % Lymphocytes % Monocytes % Eosinophils % Basophils % ESR PT with INR INR PTT (Actin FS) Sodium Potassium Chloride Carbon Dioxide Anion Gap BUN Creatinine Creat Clearance w eGFR Random Glucose Lactic Acid Calcium Magnesium Total Bilirubin AST ALT Alkaline Phosphatase Creatine Kinase Troponin I C-Reactive Protein Total Protein Albumin Serum , Qual Negative Urine Color Urine Appearance Urine pH Ur Specific [place] Urine Protein Urine Glucose (UA) Urine Ketones Urine Blood Urine Nitrite Urine Bilirubin Urine Urobilinogen Ur Leukocyte Esterase Stool Occult Blood Positive Blood Type O POSITIVE Antibody Screen Negative 07/10/17 07/10/17 07/11/17 15:30 22:50 09:23 WBC 13.7 H RBC 3.72 Hgb 10.3 L Hct 31.8 L MCV 85.3 MCH 27.7 MCHC 32.5 RDW 15.8 H Plt Count 485 H MPV 7.1 L Neutrophils % 75.0 Lymphocytes % 8.1 Monocytes % 16.0 H Eosinophils % 0.8 Basophils % 0.1 ESR 95 H PT with INR INR PTT (Actin FS) Sodium Potassium Chloride Carbon Dioxide Anion Gap BUN Creatinine Creat Clearance w eGFR Random Glucose Lactic Acid Calcium Magnesium 1.7 L Total Bilirubin AST ALT Alkaline Phosphatase Creatine Kinase Troponin I C-Reactive Protein Total Protein Albumin Serum , Qual Urine Color Urine Appearance Urine pH Ur Specific [place] Urine Protein Urine Glucose (UA) Urine Ketones Urine Blood Urine Nitrite Urine Bilirubin Urine Urobilinogen Ur Leukocyte Esterase Stool Occult Blood Blood Type Antibody Screen 07/11/17 09:23 WBC RBC Hgb Hct MCV MCH MCHC RDW Plt Count MPV Neutrophils % Lymphocytes % Monocytes % Eosinophils % Basophils % ESR PT with INR INR PTT (Actin FS) Sodium 135 L Potassium 4.0 Chloride 103 Carbon Dioxide 21 D Anion Gap 11 BUN 9 D Creatinine 0.9 D Creat Clearance w eGFR > 60 Random Glucose 181 H D Lactic Acid Calcium 8.2 L Magnesium Total Bilirubin 0.7 D AST 15 ALT 26 Alkaline Phosphatase 84 Creatine Kinase Troponin I C-Reactive Protein Total Protein 7.4 Albumin 2.4 L Serum , Qual Urine Color Urine Appearance Urine pH Ur Specific [place] Urine Protein Urine Glucose (UA) Urine Ketones Urine Blood Urine Nitrite Urine Bilirubin Urine Urobilinogen Ur Leukocyte Esterase Stool Occult Blood Blood Type Antibody Screen Microbiology 07/10/17 15:30 Stool Clostridium difficile (PCR) - Preliminary 07/11/17 09:00 Stool Norovirus GI - Preliminary 07/11/17 09:00 Stool Norovirus GII - Preliminary 07/11/17 09:00 Stool Clostridium difficile Antigen (DREAD) - Final 07/11/17 09:00 Stool Clostridium difficile Toxin Assay - Final ASSESSMENT AND PLAN: 42 yof with PMHx of HIV on HAART, Alcohol/cocaine abuse, COPd, bipolar disorder , recently admitted to [facility], comes with fevers, abdominal pain with bloody diarrhea, CT A/p suggestive of diffuse left sided colitis. -Acute left sided diffuse colitis with sepsis vs Ulcerative colitis flare -HIV on HAART -Alcohol/cocaine abuse -COPD -Bipolar disorder -Left renal staghorn calculs (incidental finding on CT A/P Plan: ID/Gi input appreciated. levaquin/flagyl. Stool C difficile neg. Follow up additional stool studies. High grade fevers unlikely with UC flare unless transmural involvment. HOld off on steroids for now. retrieve records from [facility]. Per ED discussion with them, patient had exploratory laparotomy for ?intususception, found with colitis s/p antibiotic then. Asked patient is family can bring Genvoya from home, patient to attempt. Discuss with ID for alternate regimen if unable. Drug screen. resume home risperidone. Check lithium levels, resume accordingly. resume lyrica. DVTPPX SCDs when in bed. patient ambulatory. D/c heparin given bloody diarrhea and anemia. Dispo pending resolution of medical issues.
[2017-07-11] MEDS: ONDANSETRON 4 MG/2 ML VIAL IVPUSH PRN ×2 (15:39→22:39)
[2017-07-11] MEDS: PANTOPRAZOLE 40 MG TABLET (FP) PO SCH (16:01)
--- NOTE | 2017-07-11 17:09 | EKG ---
Test Reason : Blood Pressure : / mmHG Vent. Rate : 100 BPM Atrial Rate : 100 BPM P-R Int : 124 ms QRS Dur : 072 ms QT Int : 316 ms P-R-T Axes : 049 046 038 degrees QTc Int : 407 ms POOR DATA QUALITY, INTERPRETATION MAY BE ADVERSELY AFFECTED NORMAL SINUS RHYTHM POSSIBLE LEFT ATRIAL ENLARGEMENT BORDERLINE ECG WHEN COMPARED WITH ECG OF 06-JUL-2017 08:11, NO SIGNIFICANT CHANGE WAS FOUND Confirmed by RADHA SANTIAGO MD ([id number]) on 07/11/2017 5:09:12 PM Referred By: Confirmed By:RADHA SANTIAGO MD
--- NOTE | 2017-07-11 20:26 | CONS ---
DATE OF CONSULTATION: DATE OF DICTATION: 07/11/2017 This consult is for Dr. Christiano Au. We are in coverage of Dr. Au. The patient comes in with complaint of high fever to 102 and diarrhea of 4 days duration. The patient is a 42-year-old woman with a past medical history of HIV and she reports being diagnosed with ulcerative colitis 10 years ago in [place] and states she has followed there. It is unclear if she is followed up for this condition and she is a very poor informant. She says she does not usually have diarrhea or rectal bleeding but she has had some pain. She was supposed to be on Apriso but was not taking it. She also has a history of substance abuse, cocaine abuse, alcohol abuse, and she says she uses all recreational substances and she was recently at the [facility], when for 4 days she started having high fever and episodes of non-bloody watery diarrhea with diffuse abdominal pain that was 7/10 in nature, and a fever to 102. The patient also has COPD and bipolar disease. The patient is a very poor informant and really cannot tell much about her having ulcerative colitis except recently she was in a lot of pain, went to [place], where she had colonoscopy and a scan. She said she had a contrast sonogram that revealed that her intestines were stuck to the colon. She then had a colonoscopy, which she said revealed black things at the end of the colon that were biopsied and then she states that she underwent a laparoscopic biopsy. The patient cannot give any more details. She says that she was discharged on Apriso but she has not started taking it yet. Currently the patient's main complaint is that she has episodes of fever that get pretty high when she is not on medication. She is not having any rectal bleeding or tarry stools. She continues to have diarrhea. By the chart, it states that again she has a history of HIV and her last viral load was undetectable and a CD4 count was over 300. However, it is unclear if she is complaint with medications. The patient has not been having any vomiting. She has had some diarrhea. She is not having any hematemesis or bright red blood per rectum. The patient has an extensive past history of substance abuse and psychiatric disease. She has PTSD as well as bipolar disease, alcohol abuse, cocaine abuse, and is now in rehabilitation. She says she abuses all substances. She has bipolar disease, and she had a laparoscopy in June. The patient says that she is not working, she is single, she has 2 children, and she used cocaine up until last weekend. Her mother has a history of diabetes and hypertension. Her father's history is unknown. She is not allergic to any medications that she is aware. Her home medications include Ventolin, Voltaren. She takes a combination Genvoya for HIV, she takes hydrocortisone, Anusol, as well as Atarax, Eskalith, which is lithium, Apriso, Mycostatin, polyethylene glycol, Lyrica, Risperdal, and triamcinolone. The patient, on admission, has had fevers ranging from 99 to 102, and her blood pressure of 126/78, and her heart rate has ranged from 80 to 100. At the present time, her most recent vital signs reveal a temperature of 97, which it has been for most of the day. She has been afebrile. Her blood pressure is 93/48, and the most recent heart rate is 74. Currently in the hospital, her medications include the following: Tylenol, Levaquin, Flagyl, heparin subcutaneous, Risperdal, IV fluid, and morphine. On physical exam, she appears to be in no distress. She does not appear sick. She appears a well-developed, well-nourished woman. Sclerae anicteric. Neck is supple. Dentition is good. Mouth is moist. Neck is supple. Lungs clear. Heart regular. Abdomen is soft. Bowel sounds are active. There is no rigidity. It is not tense. There is no rebound or guarding. There is minimal tenderness diffusely to palpation. Her laboratory data is notable in that her white count is 13.7, with a hemoglobin 10.0 and hematocrit 31.8, and MCV of 85, and 485,000 platelets. She has coagulation studies that are normal with an INR of 1.3. Chemistries revealing a sodium 135, potassium 4, chloride 103, bicarbonate 21, BUN 9, creatinine 0.9. She has a calcium 8.2, magnesium 1.7, total bilirubin of 0.7, AST 15. She has an ALT of 26, alkaline phosphatase 84, and on admission, her C-reactive is 18.6, her albumin is 2.4. She had a CT scan that had not officially been read yet and we await the official reading but she has had significant thickening of the colon consistent with a colitis. It is my impression that the patient is a 42-year-old woman with a history of polysubstance abuse, HIV, and ulcerative colitis. She is a very poor informant and we do not have details on the extent of her inflammatory bowel disease. It is unclear if she has ever been treated, and in listening to her symptoms, there is a disconnect with the typical ulcerative colitis presentation and I am unclear what her recent colonoscopy at [place] revealed, as well as why, and the findings on the laparoscopic biopsy. It is unclear if she is being ruled out for things like TB, but for now, she does not have typical findings, at least in terms of symptomatology of an ulcerative colitis flare, as she is not having any rectal bleeding, she is reporting a lot of diarrhea, and based on her lab findings and presentation, I would certainly exclude an infectious etiology prior to any aggressive treatment for ulcerative colitis. I would recommend checking stool cultures repeatedly to rule out all infectious culprits, continue IV fluid, and food a low-residue lactose-free diet as tolerated. I would recommend her labs be followed up and we can start her on some 5-ASA medication. For now, I would hold off steroids until we know that all cultures are negative. Will need to get the results of her recent colonoscopy and biopsy prior to starting any new medications. At the present time, she does not appear toxic, her abdomen is soft, and her bowel sounds are good. We will continue to be available to aid in the management of this patient. TANYA GUTIERREZ M.D. [id number]
[2017-07-11] MEDS ORDERED: PT OWN MED DRAWER 7, Y5N ONE (20:41)
[2017-07-11] MEDS ORDERED: CIPROFLOXACIN 400 MG/D5W 400 MG/200 ML IVPB IVPB SCH (22:00)
[2017-07-11] MEDS: risperiDONE 0.25 MG TABLET (FP) PO SCH (22:40)
[2017-07-11] MEDS: PREGABALIN 50 MG CAPSULE PO SCH (22:40)
[2017-07-12] MEDS: SODIUM CHLORIDE 1,000 ML IV SCH ×3 (04:09→17:31)
[2017-07-12] MEDS: METRONIDAZOLE 500 MG PREMIXED 500 MG/100 ML MG IVPB SCH ×3 (06:49→22:29)
[2017-07-12 07:30] LABS: MCH 27.2 pg (25.7-33.7); MCHC 31.9 g/dl (32.0-36.0); MEAN CELL VOLUME 85.3 fl (80-96); MEAN PLT VOLUME 7.1 fl (7.5-11.1); PLATELET COUNT 433 K/MM3 (134-434); RDW 15.8 % (11.6-15.6); WHITE BLOOD COUNT 11.1 K/mm3 (4.0-10.0)
[2017-07-12 07:58] LABS: ALBUMIN 2.1 g/dl (3.4-5.0); ANION GAP 7 (8-16); CALCIUM 7.5 mg/dL (8.5-10.1); CO2 24 mmol/L (21-32); GLUCOSE,RANDOM 96 mg/dL (74-106); MAGNESIUM 1.7 mg/dL (1.8-2.4)
[2017-07-12 08:01] LABS: ALK PHOS 74 U/L (45-117); BILIRUBIN,TOTAL 0.5 mg/dL (0.2-1.0); CREATININE 0.5 mg/dL (0.55-1.02); PHOSPHOROUS 1.9 mg/dL (2.5-4.9); SGOT/AST 12 U/L (15-37); SGPT/ALT 20 U/L (12-78); TOT PROT 6.4 g/dl (6.4-8.2)
[2017-07-12] MEDS: PREGABALIN 50 MG CAPSULE PO SCH ×2 (10:20→22:32)
[2017-07-12] MEDS: HEPARIN NA (PORCINE) 5,000 UNITS/ML 1ML VIAL SQ SCH ×2 (10:21→22:32)
[2017-07-12] MEDS: PANTOPRAZOLE 40 MG TABLET (FP) PO SCH (10:21)
[2017-07-12] MEDS: LEVOFLOXACIN 500 MG IVPB 500 MG/100 ML BAG IVPB SCH (10:21)
[2017-07-12] MEDS: ACETAMINOPHEN 325 MG TABLET (FP) PO PRN (10:22)
--- NOTE | 2017-07-12 14:52 | PN ---
Progress Note (short form) - Note Progress Note: c/o diffuse abdominal pain but improved since yesterday. 6 loose BM today which is half as many as yesterday, no longer bloody as they were on presentation. states she was at [facility] on June 20 2017 for abdominal pain which she underwent colonoscopy and laprascopic surgery which what they were looking for wasnt there but a bx was done. she states she was being treated for what sounds like internal hernia or intussipation. was dx with UC over 10 years ago through a GI doctor at in [facility] and was prescribed medications which she never took and never followed up. suffers from intermittent diarrhea and constipation but never been hospitalized until this month. denies CP, SOB, fever, chills, N/V/. claims medication compliance Current Medications Generic Name Dose Route Start Last Admin Trade Name Freq PRN Reason Stop Dose Admin Acetaminophen 650 mg 07/11/17 10:26 07/12/17 10:22 Tylenol - PO 650 mg Q6H PRN Administration FEVER OR PAIN Heparin Sodium (Porcine) 5,000 unit 07/11/17 10:00 07/12/17 10:21 Heparin - SQ 5,000 unit BID KRISHNA Administration Sodium Chloride 1,000 mls @ 100 mls/hr 07/11/17 01:45 07/12/17 04:10 Normal Saline - IV Not Given ASDIR KRISHNA Metronidazole 500 mg in 100 mls @ 100 mls/hr 07/11/17 06:00 07/12/17 14:37 Flagyl 500mg Premixed Ivpb - IVPB 100 mls/hr TID KRISHNA Administration Levofloxacin 500 mg in 100 mls @ 100 mls/hr 07/11/17 10:00 07/12/17 10:21 Levaquin 500 Mg Premixed Ivpb - IVPB 100 mls/hr DAILY KRISHNA Administration Morphine Sulfate 0.5 mg 07/11/17 10:26 07/11/17 16:03 Morphine Injection - IVPUSH 0.5 mg Q4H PRN Administration PAIN Ondansetron HCl 4 mg 07/11/17 15:31 07/11/17 22:39 Zofran Injection IVPUSH 4 mg Q6H PRN Administration NAUSEA AND/OR VOMITING Pantoprazole Sodium 40 mg 07/11/17 15:45 07/12/17 10:21 Protonix - PO 40 mg DAILY KRISHNA Administration Pregabalin 200 mg 07/11/17 22:00 07/12/17 10:20 Lyrica - PO 200 mg BID KRISHNA Administration Risperidone 0.25 mg 07/11/17 22:00 07/11/17 22:40 Risperdal - PO Not Given HS [facility] Last Vital Signs Temp Pulse Resp BP Pulse Ox 99.2 F 92 H 20 107/65 99 07/12/17 01:38 07/12/17 01:38 07/12/17 01:38 07/12/17 01:38 07/12/17 11:00 General NAD CV S1 S2 RRR no murmur/rub/gallop Lungs CTA B/L no wheezing/rlaes/rhonchi Abdomen soft diffuse tenderness on palpation but not during deep auscultation. hypoactive BS Extremities no pedal edema, no rashes CBCD WBC 11.1 K/mm3 (4.0-10.0) H 07/12/17 06:00 RBC 3.35 M/mm3 (3.60-5.2) L 07/12/17 06:00 Hgb 9.1 GM/dL (10.7-15.3) L D 07/12/17 06:00 Hct 28.6 % (32.4-45.2) L 07/12/17 06:00 MCV 85.3 fl (80-96) 07/12/17 06:00 MCHC 31.9 g/dl (32.0-36.0) L 07/12/17 06:00 RDW 15.8 % (11.6-15.6) H 07/12/17 06:00 Plt Count 433 K/MM3 (134-434) 07/12/17 06:00 MPV 7.1 fl (7.5-11.1) L 07/12/17 06:00 CMP Sodium 138 mmol/L (136-145) 07/12/17 06:00 Potassium 3.4 mmol/L (3.5-5.1) L 07/12/17 06:00 Chloride 107 mmol/L (98-107) 07/12/17 06:00 Carbon Dioxide 24 mmol/L (21-32) 07/12/17 06:00 Anion Gap 7 (8-16) L 07/12/17 06:00 BUN 6 mg/dL (7-18) L D 07/12/17 06:00 Creatinine 0.5 mg/dL (0.55-1.02) L D 07/12/17 06:00 Creat Clearance w eGFR > 60 (>60) 07/12/17 06:00 Calcium 7.5 mg/dL (8.5-10.1) L 07/12/17 06:00 Total Bilirubin 0.5 mg/dL (0.2-1.0) D 07/12/17 06:00 AST 12 U/L (15-37) L 07/12/17 06:00 ALT 20 U/L (12-78) D 07/12/17 06:00 Alkaline Phosphatase 74 U/L (45-117) 07/12/17 06:00 Total Protein 6.4 g/dl (6.4-8.2) 07/12/17 06:00 Albumin 2.1 g/dl (3.4-5.0) L 07/12/17 06:00 ASSESSMENT AND PLAN: 42 yo F with PMHx of HIV on HAART, Alcohol/cocaine abuse, COPd, bipolar disorder , recently admitted to [facility], comes with fevers, abdominal pain with bloody diarrhea from [facility] for detox. 1. sepsis due to acute L sided colitis- clinically improved. Tm 101.7. ESR/CRP elevated. will send release form to obtain workup done at [facility]. does not appear as typical UC. Cdiff pending. O&P negative. on Levaquin and Flagyl day 2. tolerating liquid diet. cont IVF. pain and nausea control. GI and ID on board. hold steroids at this time 2. Normocytic anemia- some dilutional. check iron studies. no indication for txn. no more gross bleeding. +FOBT. colonoscopy done earlier this month. awaiting records 3. L staghorn calculus- normal kidney function, good UOP. incidental finding. urology eval. 4. Hypomagnesemia- Mg 2g 5. Hypokalemia- kcl po 6. HIV on HARRT 7. continuous polysubstance abuse- cocaine and ETOH. no signs of withdrawal. discuss if wants inpatient rehab once medically optimized. not on detox protocol. will not initiate at this time 8. Bipolar- on risperdone 9. DVT ppx- hep sq Visit type - Emergency Visit Emergency Visit: Yes ED Registration Date: 07/10/17 Care time: The patient presented to the Emergency Department on the above date and was hospitalized for further evaluation of their emergent condition. - New Patient This patient is new to me today: Yes Date on this admission: 07/12/17 - Critical Care Critical Care patient: No - Discharge Referral Referred to [facility] Med [facility] No
[2017-07-12] MEDS ORDERED: MAGNESIUM SULF 50% (8.12 MEQ/2 ML-1 GM VIAL) IVPB ONE (15:43)
[2017-07-12] MEDS ORDERED: POTASSIUM CHLORIDE ORAL LIQUID 20 MEQ/15 ML PO ONE (15:43)
[2017-07-12] MEDS: risperiDONE 0.25 MG TABLET (FP) PO SCH (22:33)
[2017-07-13] MEDS: SODIUM CHLORIDE 1,000 ML IV SCH ×2 (05:21→05:36)
[2017-07-13] MEDS: METRONIDAZOLE 500 MG PREMIXED 500 MG/100 ML MG IVPB SCH (06:24)
[2017-07-13] MEDS: HEPARIN NA (PORCINE) 5,000 UNITS/ML 1ML VIAL SQ SCH (09:54)
[2017-07-13] MEDS: LEVOFLOXACIN 500 MG IVPB 500 MG/100 ML BAG IVPB SCH (09:54)
[2017-07-13] MEDS: PANTOPRAZOLE 40 MG TABLET (FP) PO SCH (10:06)
[2017-07-13] MEDS: PREGABALIN 50 MG CAPSULE PO SCH (10:06)
[2017-07-13 10:46] LABS: BASO % 0.2 % (0-2.0); EOS # 0.1 # (0-4.5); EOS % 1.3 % (0-4.5); MCH 27.7 pg (25.7-33.7); MCHC 32.5 g/dl (32.0-36.0); MEAN CELL VOLUME 85.4 fl (80-96); MEAN PLT VOLUME 7.2 fl (7.5-11.1); NEUT # 6.1 # (42.8-82.8); NEUT % 74.3 % (42.8-82.8); PLATELET COUNT 463 K/MM3 (134-434); RDW 15.8 % (11.6-15.6); WHITE BLOOD COUNT 8.2 K/mm3 (4.0-10.0)
[2017-07-13 10:49] LABS: ALBUMIN 2.2 g/dl (3.4-5.0); ANION GAP 11 (8-16); BILIRUBIN,TOTAL 0.4 mg/dL (0.2-1.0); CALCIUM 8.1 mg/dL (8.5-10.1); CO2 20 mmol/L (21-32); CREATININE 0.5 mg/dL (0.55-1.02); GLUCOSE,RANDOM 116 mg/dL (74-106); MAGNESIUM 2.2 mg/dL (1.8-2.4); SGOT/AST 8 U/L (15-37); SGPT/ALT 17 U/L (12-78); TOT PROT 6.7 g/dl (6.4-8.2)
[2017-07-13 10:50] LABS: ALK PHOS 75 U/L (45-117)
[2017-07-13 11:31] LABS: FERRITIN 106.792 ng/ml (6.9-282.5)
--- NOTE | 2017-07-13 14:14 | PN ---
Progress Note, Physician Chief Complaint: ID Clinically better Apparently C diff PCR is positive C diff Ag is negative toxin neg the next day. Afebrile last 48 hours and reports no abd pain or diarrhea - Current Medication List Current Medications: Active Medications Acetaminophen (Tylenol -) 650 mg PO Q6H PRN PRN Reason: FEVER OR PAIN Last Admin: 07/12/17 10:22 Dose: 650 mg Heparin Sodium (Porcine) (Heparin -) 5,000 unit SQ BID [facility] Last Admin: 07/13/17 09:54 Dose: 5,000 unit Sodium Chloride (Normal Saline -) 1,000 mls @ 100 mls/hr IV ASDIR [facility] Last Admin: 07/13/17 05:36 Dose: Not Given Metronidazole (Flagyl 500mg Premixed Ivpb -) 500 mg in 100 mls @ 100 mls/hr IVPB TID [facility] Last Admin: 07/13/17 06:24 Dose: 100 mls/hr Levofloxacin (Levaquin 500 Mg Premixed Ivpb -) 500 mg in 100 mls @ 100 mls/hr IVPB DAILY [facility] Last Admin: 07/13/17 09:54 Dose: 100 mls/hr Morphine Sulfate (Morphine Injection -) 0.5 mg IVPUSH Q4H PRN PRN Reason: PAIN Last Admin: 07/11/17 16:03 Dose: 0.5 mg Ondansetron HCl (Zofran Injection) 4 mg IVPUSH Q6H PRN PRN Reason: NAUSEA AND/OR VOMITING Last Admin: 07/11/17 22:39 Dose: 4 mg Pantoprazole Sodium (Protonix -) 40 mg PO DAILY [facility] Last Admin: 07/13/17 10:06 Dose: 40 mg Pregabalin (Lyrica -) 200 mg PO BID [facility] Last Admin: 07/13/17 10:06 Dose: 200 mg Risperidone (Risperdal -) 0.25 mg PO HS [facility] Last Admin: 07/12/17 22:33 Dose: Not Given - Objective Vital Signs: Vital Signs Temperature 98.4 F 07/13/17 09:00 Pulse Rate 83 07/13/17 09:00 Respiratory Rate 16 07/13/17 13:00 Blood Pressure 102/56 07/13/17 09:00 O2 Sat by Pulse Oximetry (%) 97 07/13/17 13:00 HENT: Yes: WNL, Atraumatic Neck: Yes: WNL, Supple Cardiovascular: Yes: S1, S2 Respiratory: Yes: WNL, Regular, CTA Bilaterally Gastrointestinal: Yes: WNL, Normal Bowel Sounds, Soft. No: Tenderness, Tenderness, Epigastrium, Tenderness, Rebound Labs: CBC, BMP 07/13/17 10:00 07/13/17 10:00 INR, PTT INR 1.33 (0.82-1.09) H 07/10/17 15:30 Problem List - Problems (1) Infective colitis Code(s): A09 - INFECTIOUS GASTROENTERITIS AND COLITIS, UNSPECIFIED (2) Ulcerative colitis Code(s): K51.90 - ULCERATIVE COLITIS, UNSPECIFIED, WITHOUT COMPLICATIONS Qualifiers: Ulcerative colitis location: unspecified ulcerative colitis location Digestive disease complication type: unspecified complication Qualified Code(s ): K51.919 - Ulcerative colitis, unspecified with unspecified complications (3) Cocaine dependence Code(s): F14.20 - COCAINE DEPENDENCE, UNCOMPLICATED Qualifiers: Substance use status: uncomplicated Qualified Code(s): F14.20 - Cocaine dependence, uncomplicated (4) HIV (human immunodeficiency virus infection) Code(s): B20 - HUMAN IMMUNODEFICIENCY VIRUS [HIV] DISEASE Assessment/Plan Microbiology 07/11/17 09:00 Stool Escherichia coli 0157 Culture - Final NO GROWTH OF VIBRIO SPECIES OBTAINED NO GROWTH OF E COLI 0157 OBTAINED 07/11/17 09:00 Stool Clostridium difficile Antigen (DREAD) - Final 07/11/17 09:00 Stool Clostridium difficile Toxin Assay - Final 07/11/17 09:00 Stool Salmonella/Shigella Culture - Preliminary 07/11/17 09:00 Stool Yersinia Culture - Preliminary NO ENTERIC PATHOGENS, 24 HOURS, ON PRIMARY PLATES NO ENTERIC PATHOGENS, 24 HOURS, ON PRIMARY PLATES 07/11/17 09:00 Stool Norovirus GI - Preliminary 07/11/17 09:00 Stool Norovirus GII - Preliminary 07/10/17 15:30 Blood - Peripheral Venous Blood Culture - Preliminary NO GROWTH OBTAINED AFTER 48 HOURS, INCUBATION TO CONTINUE FOR 3 DAYS. 07/10/17 15:15 Blood - Peripheral Venous Blood Culture - Preliminary NO GROWTH OBTAINED AFTER 48 HOURS, INCUBATION TO CONTINUE FOR 3 DAYS. Laboratory Tests 07/10/17 07/11/17 07/12/17 15:30 09:23 06:00 WBC 13.1 H D 13.7 H 11.1 H Plt Count BUN Creatinine 12/26/17 12/26/17 10:00 10:00 WBC 8.2 Plt Count 463 H BUN 6 L Creatinine 0.5 L Assessment Working diagnosis C diff colitis PCR pos Plan Consider discharge once she can eat reg diet Oral metronidazole 500mg tid total 14 days Stop Quinolone Follow up with [facility] regarding recent surgery and biopsies Discussed with PMD
--- NOTE | 2017-07-13 16:18 | PN ---
Teaching Attending Note Name of Resident: Leny Lovett ATTENDING PHYSICIAN STATEMENT I saw and evaluated the patient. I reviewed the resident's note and discussed the case with the resident. I agree with the resident's findings and plan as documented. SUBJECTIVE:abdominal pain improved. tolerating liquid diet and requesting to eat cheese. no more BM since yesterday. (had total of 6 yesterday). denies CP, SOB, fever, chills, N/V OBJECTIVE: Last Vital Signs Temp Pulse Resp BP Pulse Ox 98 F 80 20 109/72 97 07/13/17 14:26 07/13/17 14:26 07/13/17 14:26 07/13/17 14:26 07/13/17 13:00 General NAD Abdomen soft + LLQ tenderness normoactive BS ASSESSMENT AND PLAN: 42 yo F with PMHx of HIV on HAART, Alcohol/cocaine abuse, COPd, bipolar disorder , recently admitted to [facility], comes with fevers, abdominal pain with bloody diarrhea from [facility] for detox. 1. sepsis due to acute L sided colitis- afebrile. clinically improved. cdiff PCR + cdiff ag and toxin negative. clinical picture is consistent with cdiff. will advance to low residue diet. d/c levaquin. switch flagyl to po and complete 14 day course. medical record release form been sent for collateral information however pt wants to follow up with GI doctors at [facility]. 2. Normocytic anemia- some dilutional. Hgb stable. iron studies pending. no indication for txn. no more gross bleeding. +FOBT. colonoscopy done earlier this month. awaiting records 3. L staghorn calculus- normal kidney function, good UOP. incidental finding. urology eval as outpatient 4. Hypomagnesemia- resolved 5. Hypokalemia- kcl po 6. HIV on HARRT 7. continuous polysubstance abuse- cocaine and ETOH. no signs of withdrawal. discuss if wants inpatient rehab once medically optimized. not on detox protocol. will not initiate at this time 8. Bipolar- on risperdone 9. DVT ppx- hep sq 10. if tolerating diet can go back to [facility] to complete inpatient detox. Dr Canseco notififed by resident and accepted pt back to facility. does not require contact isolation as no longer having diarrhea.
[2017-07-13] MEDS ORDERED: POTASSIUM CHLORIDE ORAL LIQUID 20 MEQ/15 ML PO ONE (16:30)
--- NOTE | 2017-07-13 19:13 | DS ---
Physical Exam: SUBJECTIVE: Patient seen and examined. Pt reports her abdominal pain is improved. Pt denies chest pain, sob, fever, chills, chills, nausea, vomiting, constipation and diarrhea (no more bowel movements since yesterday). No events overnight. OBJECTIVE: Vital Signs Period Temp Pulse Resp BP Sys/Cleaning Pulse Ox Last 24 Hr 98 F-98.5 F 80-96 16-20 102-109/56-72 96-97 PHYSICAL EXAM GENERAL: The patient is awake, alert, and fully oriented, in no acute distress. LUNGS: Breath sounds equal, clear to auscultation bilaterally, no wheezes, no crackles, no accessory muscle use. HEART: Regular rate and rhythm, S1, S2 without murmur, rub or gallop. ABDOMEN: Tenderness to LLQ appreciated, Soft, nondistended. EXTREMITIES: Warm, well-perfused, no edema. PSYCH: Normal mood, normal affect. SKIN: Warm, dry, normal turgor, no rashes or lesions noted. LABS Laboratory Results - last 24 hr 07/11/17 07/13/17 07/13/17 09:23 10:00 10:00 WBC 8.2 RBC 3.28 L Hgb 9.1 L Hct 28.0 L MCV 85.4 MCH 27.7 MCHC 32.5 RDW 15.8 H Plt Count 463 H MPV 7.2 L Neutrophils % 74.3 Lymphocytes % 11.7 D Monocytes % 12.5 H Eosinophils % 1.3 Basophils % 0.2 Sodium 140 Potassium 3.3 L Chloride 109 H Carbon Dioxide 20 L Anion Gap 11 BUN 6 L Creatinine 0.5 L Creat Clearance w eGFR > 60 Random Glucose 116 H D Calcium 8.1 L Magnesium 2.2 D Ferritin 106.792 Total Bilirubin 0.4 AST 8 L D ALT 17 Alkaline Phosphatase 75 Total Protein 6.7 Albumin 2.2 L [place] 0.6 07/13/17 10:00 WBC RBC Hgb Hct MCV MCH MCHC RDW Plt Count MPV Neutrophils % Lymphocytes % Monocytes % Eosinophils % Basophils % Sodium Potassium Chloride Carbon Dioxide Anion Gap BUN Creatinine Creat Clearance w eGFR Random Glucose Calcium Magnesium Ferritin Cancelled Total Bilirubin AST ALT Alkaline Phosphatase Total Protein Albumin [place] HOSPITAL COURSE: Date of Admission:07/10/17 Date of Discharge: 07/13/17 42yo F with PMH of HIV (on HAART), polysubstance abuse (etoh, cocaine), bipolar disorder, presents with fevers/abdominal pain/bloody diarrhea from [facility] for Detox. Pt found to have sepsis 2/2 acute Left sided colitis and then found to be cdiff (+), discharged on Flagyl po for 11 more days (for 14 days of total treatment). Pt found to have normocytic anemia with stable hgb. (+) FOBT likely 2/2 bloody diarrhea. Left staghorn calculus found incidentally; pt to f/ u outpt. 07/10/17 CXR -> no acute chest pathology 07/10/17 Ab/Pel CT -> diffuse colitis. Left renal staghorn calculus. 07/10/17 blood culture (-) x 72 hrs 07/10/17 cdiff (-) 07/11/17 stool culture (-) 07/11/17 repeat cdiff (+) Pt medically stable for discharge back to [facility] for detox/rehab. Minutes to complete discharge: 40 Discharge Summary Reason For Visit: INFECTIOUS COLITIS/HIV/ULCERATIVE COLITIS Current Active Problems C. difficile colitis (Acute) Infective colitis (Acute) Ulcerative colitis (Chronic) Condition: Improved - Instructions Diet, Activity, Other Instructions: You were treated for abdominal pain and diarrhea. You were found to have c. diff. Please continue your antibiotic, Flagyl, 3 times daily (every 8 hours) for 11 more days. Please continue to take your other home medications as prescribed. You are being sent back to [facility] for inpatient rehab. It is important that you abstain from drug and alcohol use as it is detrimental to your health. Follow-ups: - with your Primary Care Doctor within 1 week. Speak with your primary care doctor about following up with a urologist due to incidental finding of kidney stone. Information on one in the area has been provided if you decide to follow up here. - with GI doctor from [facility] within 2 weeks. You may need further workup for your ulcerative colitis Please return to the hospital immediately if you experience persistent or increased abdominal pain, diarrhea, difficulty breathing, or for any medical emergency. Referrals: Marques Adkins MD [Staff Physician] - Disposition: PRISON FACILITY - Home Medications Comprehensive Discharge Medication List: Ambulatory Orders Albuterol Sulfate Inhaler - [Ventolin HFA Inhaler -] 2 inh PO Q4H PRN 07/05/17 Diclofenac Sodium [Voltaren -] 75 mg PO DAILY 07/05/17 Elviteg/Cob/Emtri/Tenof Alafen [Genvoya (Non-Formulary)] 1 each PO DAILY Hydrocortisone 2.5% Topical Cr [Anusol-Hc -] 1 applic RC BID 07/05/17 Hydroxyzine HCl [Atarax -] 50 mg PO HS 07/05/17 [place] Carbonate [Eskalith -] 600 mg PO BID 07/05/17 Mesalamine [Apriso] 4 cap PO DAILY 07/05/17 Nystatin Cream [Mycostatin Cream -] 1 applic TP BID 07/05/17 Pregabalin [Lyrica -] 200 mg PO BID 07/05/17 Risperidone [Risperdal -] 0.25 mg PO HS 07/05/17 Triamcinolone Acet 0.1% Cream [Aristocort] 0 gm TP BID 07/05/17 Acetaminophen [Tylenol .Regular Strength -] 650 mg PO Q6H PRN tablet 07/13/17 Metronidazole [Flagyl -] 500 mg PO TID #33 tablet 07/13/17 This patient is new to me today: Yes Date on this admission: 07/13/17 Emergency Visit: Yes ED Registration Date: 07/10/17 Care time: The patient presented to the Emergency Department on the above date and was hospitalized for further evaluation of their emergent condition. Critical Care patient: No - Discharge Referral Referred to [facility] Med P.C.: No
[2017-07-13 19:18] VITALS: BP 101/61; PULSE 84; TEMP 98.5
[2017-07-13] MEDS ORDERED: metroNIDAZOLE 250 MG TABLET PO SCH (22:00)
[2017-07-14 06:07] LABS: SERUM IRON 26 ug/dL (27-159); TOTAL IRON BINDING CAPACITY 175 ug/dL (250-450); UIBC 149 ug/dL (131-425)
== END 2017-07-13 20:12 | disposition other institution (70) | DRG 872 ==
LOC: JER 14:38 → JERBED 23:17 → J7W 07-11 01:06
PROVIDERS: ADMIT Internal Medicine; ATTEND Internal Medicine
DX: A41.9 Sepsis, unspecified organism (principal); K51.90 Ulcerative colitis, unspecified, without complications; N17.9 Acute kidney failure, unspecified; A04.72 Enterocolitis due to Clostridium difficile, not specified as recurrent; Z21 Asymptomatic human immunodeficiency virus [HIV] infection status; D72.829 Elevated white blood cell count, unspecified; F31.9 Bipolar disorder, unspecified; F10.10 Alcohol abuse, uncomplicated; D64.9 Anemia, unspecified; E83.42 Hypomagnesemia; E87.6 Hypokalemia; F14.10 Cocaine abuse, uncomplicated; J44.9 Chronic obstructive pulmonary disease, unspecified; F43.10 Post-traumatic stress disorder, unspecified; Z87.891 Personal history of nicotine dependence
CPT/HCPCS: 36415; 71010-TC; 74177-TC; 80053; 80178; 81003; 82272; 82550; 82728; 83540; 83550; 83605; 83690; 83735; 84100; 84484; 84703; 85025; 85027; 85610; 85651; 85730; 86140; 86850; 86900; 86901; 87040; 87045; 87046; 87086; 87177; 87209; 87324; 87449; 87493; 87798; 93005; 93010; 99285-25; J1644

== ENCOUNTER 2017-07-13 19:55 | Inpatient (IN) | payer OTHER ==
[2017-07-13 20:13] VITALS: BMI 32.1
[2017-07-13] MEDS ORDERED: P-EPHED 60MG/TRIPROLIDI 2.5MG TABLET PO PRN (20:17)
[2017-07-13] MEDS ORDERED: MAGNESIUM CITRATE 300 ML BOTTLE PO PRN (20:17)
[2017-07-13] MEDS ORDERED: NICOTINE 21 MG/24 HOURS TOPICAL PATCH TD PRN (20:17)
[2017-07-13] MEDS ORDERED: IBUPROFEN 400 MG TABLET (FP) PO PRN (20:17)
[2017-07-13] MEDS ORDERED: LOPERAMIDE HCL 2 MG CAPSULE PO PRN (20:17)
[2017-07-13] MEDS ORDERED: MENTHOL/PHENOL 1 EACH UD MM PRN (20:17)
[2017-07-13] MEDS ORDERED: MAG HYDROX/AL HYDROX/SIMETH 30 ML UNIT-DOSE CUP PO PRN (20:17)
[2017-07-13] MEDS ORDERED: ACETAMINOPHEN 325 MG TABLET (FP) PO PRN (20:17)
[2017-07-13] MEDS ORDERED: MAGNESIUM HYDROX 2400MG/30ML ORAL SUSPENSION 30 ML CUP PO PRN (20:17)
[2017-07-13] MEDS ORDERED: guaiFENesin/D-METHORPHAN HB 10 ML UNIT-DOSE CUPS PO PRN (20:17)
--- NOTE | 2017-07-13 20:17 | HP ---
URMILA FRANCOIS Rehab Assess/Revision - Admission History Admitted to Rehab from: Medical/Surgical Date of Admission to Rehab: 07/13/17 - Vital signs Vital Signs: Vital Signs Period Temp Pulse Resp BP Sys/Cleaning Pulse Ox Last 24 Hr 100 F 93 18 117/69 - Findings Detox History & Physical reviewed: Yes Concur with findings: Yes Comments/Additional Findings: transferred from 7w to rehab admission as per protocol Inpatient Rehab Admission - Initial Determination Are CD services needed?: Yes Free of communicable disease: Yes Not in need of hospitalization: Yes - Rehab Admission Criteria Previous failed treatment: Yes Poor recovery environment: Yes Comorbidities: Yes Lacks judgement: No Patient is meeting Inpatient Rehab admission criteria:: Yes
[2017-07-13] MEDS: NICOTINE POLACRILEX 4 MG GUM BUC PRN (22:05)
[2017-07-13] MEDS: THIAMINE HCL 100 MG TABLET (FP) PO SCH (22:06)
[2017-07-13] MEDS: PREGABALIN 100 MG CAPSULE PO SCH (22:06)
[2017-07-14] MEDS: NICOTINE POLACRILEX 4 MG GUM BUC PRN (10:13)
--- NOTE | 2017-07-14 10:22 | PN ---
[facility] Progress Note (SOAP) Subjective: c/o abdo discomfort from antibioitics given in hospital otherwise condition much imporved, needs dry skin lotaion and to restart HAART, diclofenac for arthritis Objective: 07/14/17 10:20 Vital Signs - 24 hr 07/13/17 07/13/17 07/14/17 20:12 22:00 00:33 Temperature 100 F H 97.9 F Pulse Rate 93 H 87 Respiratory 18 18 18 Rate Blood Pressure 117/69 117/77 07/14/17 07/14/17 03:30 06:59 Temperature 97.8 F Pulse Rate 81 Respiratory 18 18 Rate Blood Pressure 111/75 low yamila lab reviewe and anemia will repeat in am, supplement k Assessment: 07/14/17 10:21 c diff causing fever in setting of UC and hiv/AIDS stool still loose, on flagyl tid,
[2017-07-14] MEDS ORDERED: POTASSIUM CHLORIDE TABS 20 MEQ TABLET.ER (FP) PO ONE (10:38)
[2017-07-14] MEDS ORDERED: ELVITEG/COB/EMTRI/TENOF (GENVOYA) TABLET (NF) PO SCH (10:42)
[2017-07-14] MEDS: PRENATAL VITAMINS W/ FOLIC ACID TABLET (FP) PO SCH (11:39)
[2017-07-14] MEDS: PREGABALIN 100 MG CAPSULE PO SCH ×3 (11:39→22:57)
[2017-07-14] MEDS: MESALAMINE PO SCH (11:39)
[2017-07-14] MEDS: HYDROCORTISONE 2.5% TOPICAL CREAM 30 GM TUBE RC SCH ×2 (11:39→21:30)
[2017-07-14] MEDS: ELVITEG/COB/EMTRI/TENOF (GENVOYA) TABLET (NF) PO SCH (11:40)
[2017-07-14] MEDS: DICLOFENAC SODIUM 75 MG TABLET.DR PO SCH (11:40)
[2017-07-14] MEDS: metroNIDAZOLE 250 MG TABLET PO SCH ×2 (13:16→21:27)
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
--- NOTE | 2017-07-14 16:03 | PN ---
[facility] Progress Note (SOAP) Objective: 07/14/17 16:04 Laboratory Tests 07/06/17 07/09/17 07/10/17 07:00 10:30 15:30 Potassium 3.4 L 3.8 4.2 07/11/17 07/12/17 07/13/17 09:23 06:00 10:00 Potassium 4.0 3.4 L 3.3 L
[2017-07-14] MEDS ORDERED: PT OWN MED DRAWER 7, Y5N ONE (19:50)
[2017-07-14] MEDS: ALBUTEROL SO4 18 GM HFA INHALER IH PRN (19:51)
[2017-07-14] MEDS: risperiDONE 0.25 MG TABLET (FP) PO SCH (21:27)
[2017-07-14] MEDS: FERROUS SO4 300 MG/5 ML ORAL SOLN UNIT DOSE CUPS PO SCH (21:29)
[2017-07-14] MEDS: NYSTATIN 100,000 UNIT/GM TOPICAL CREAM 15 GM TUBE TP SCH (21:29)
[2017-07-14] MEDS: LITHIUM CARBONATE 300 MG CAPSULE (FP) PO SCH ×2 (21:29→23:02)
[2017-07-14] MEDS: THIAMINE HCL 100 MG TABLET (FP) PO SCH (21:30)
[2017-07-15] MEDS: metroNIDAZOLE 250 MG TABLET PO SCH ×3 (06:44→21:12)
[2017-07-15] MEDS: FERROUS SO4 300 MG/5 ML ORAL SOLN UNIT DOSE CUPS PO SCH ×3 (08:20→18:06)
[2017-07-15 09:53] LABS: BASO % 0.3 % (0-2.0); EOS % 1.2 % (0-4.5); HEMOGLOBIN 9.3 GM/dL (10.7-15.3); LYMPH % 15.3 % (8-40); MCH 27.4 pg (25.7-33.7); MCHC 32.2 g/dl (32.0-36.0); MEAN PLT VOLUME 7.6 fl (7.5-11.1); NEUT % 74.2 % (42.8-82.8); PLATELET COUNT 631 K/MM3 (134-434); RBC 3.41 M/mm3 (3.60-5.2); RDW 16.3 % (11.6-15.6); WHITE BLOOD COUNT 6.1 K/mm3 (4.0-10.0)
[2017-07-15 09:59] LABS: CHLORIDE 108 mmol/L (98-107); POTASSIUM 3.6 mmol/L (3.5-5.1); SODIUM 138 mmol/L (136-145)
[2017-07-15] MEDS: NYSTATIN 100,000 UNIT/GM TOPICAL CREAM 15 GM TUBE TP SCH ×2 (10:09→21:13)
[2017-07-15] MEDS: HYDROCORTISONE 2.5% TOPICAL CREAM 30 GM TUBE RC SCH ×2 (10:09→21:15)
[2017-07-15] MEDS: DICLOFENAC SODIUM 75 MG TABLET.DR PO SCH (10:10)
[2017-07-15] MEDS: LITHIUM CARBONATE 300 MG CAPSULE (FP) PO SCH ×2 (10:10→21:12)
[2017-07-15] MEDS: PREGABALIN 100 MG CAPSULE PO SCH ×2 (10:10→21:14)
[2017-07-15 10:11] LABS: ALBUMIN 2.2 g/dl (3.4-5.0); ALK PHOS 65 U/L (45-117); ANION GAP 9 (8-16); BILIRUBIN,TOTAL 0.5 mg/dL (0.2-1.0); BLOOD UREA NITROGEN 3 mg/dL (7-18); CALCIUM 8.4 mg/dL (8.5-10.1); CO2 21 mmol/L (21-32); CREATININE 0.6 mg/dL (0.55-1.02); GLUCOSE,RANDOM 167 mg/dL (74-106); SGOT/AST 9 U/L (15-37); SGPT/ALT 14 U/L (12-78); TOT PROT 6.8 g/dl (6.4-8.2)
[2017-07-15] MEDS: ELVITEG/COB/EMTRI/TENOF (GENVOYA) TABLET (NF) PO SCH (10:11)
[2017-07-15] MEDS: MINERAL OIL/PETROLAT/WATER TOPICAL CREAM 113 GM JAR TP PRN (10:11)
[2017-07-15] MEDS: MESALAMINE PO SCH (10:12)
[2017-07-15] MEDS: PRENATAL VITAMINS W/ FOLIC ACID TABLET (FP) PO SCH (10:12)
--- NOTE | 2017-07-15 10:58 | PN ---
S Progress Note (SOAP) Subjective: feels better since hospital transfer. stool is more formed, 5 nonbloody bowel movements in 24hr period. decr in abdominal pain, denies fever requests atarax to be given with her Li, she was on this at home and it helps her sleep Objective: 07/15/17 14:10 Gen: NAD Abd: nondistended, nontender Vital Signs Temperature 98.4 F 07/15/17 07:08 Pulse Rate 91 H 07/15/17 10:00 Respiratory Rate 18 07/15/17 07:08 Blood Pressure 116/80 07/15/17 10:00 O2 Sat by Pulse Oximetry (%) Assessment: 07/16/17 10:04 42 yr old woman with ETOH and cocaine dependence, UC, HIV (on HAART), COPD, bipolar d/o admitted for rehabilitation for polysubstance use being treated for c.diff infection Plan: Plan: add atarax 50mg po hs continue flagyl as per [facility] c.diff isolation precautions, if pt's symptoms have improved and no longer has diarrhea she does not be placed on contact isolation Resident Progress Note, Dr. Orozco PGY-[address] Canseco
[2017-07-15] MEDS: risperiDONE 0.25 MG TABLET (FP) PO SCH (21:12)
[2017-07-15] MEDS: THIAMINE HCL 100 MG TABLET (FP) PO SCH (21:13)
[2017-07-15] MEDS: hydrOXYzine HCL 25 MG TABLET (FP) PO SCH (21:15)
[2017-07-15] MEDS: NICOTINE POLACRILEX 4 MG GUM BUC PRN (21:16)
[2017-07-16] MEDS ORDERED: PT OWN MED DRAWER 7, Y5N ONE ×5 (05:49→13:39)
[2017-07-16] MEDS: metroNIDAZOLE 250 MG TABLET PO SCH ×3 (06:49→21:16)
[2017-07-16] MEDS: NICOTINE POLACRILEX 4 MG GUM BUC PRN ×2 (06:50→10:34)
[2017-07-16] MEDS: FERROUS SO4 300 MG/5 ML ORAL SOLN UNIT DOSE CUPS PO SCH ×3 (07:10→18:21)
[2017-07-16] MEDS: ELVITEG/COB/EMTRI/TENOF (GENVOYA) TABLET (NF) PO SCH (10:31)
[2017-07-16] MEDS: DICLOFENAC SODIUM 75 MG TABLET.DR PO SCH (10:31)
[2017-07-16] MEDS: NYSTATIN 100,000 UNIT/GM TOPICAL CREAM 15 GM TUBE TP SCH ×2 (10:32→21:16)
[2017-07-16] MEDS: LITHIUM CARBONATE 300 MG CAPSULE (FP) PO SCH ×2 (10:32→21:16)
[2017-07-16] MEDS: HYDROCORTISONE 2.5% TOPICAL CREAM 30 GM TUBE RC SCH ×2 (10:32→21:15)
[2017-07-16] MEDS: MESALAMINE PO SCH (10:32)
[2017-07-16] MEDS: PRENATAL VITAMINS W/ FOLIC ACID TABLET (FP) PO SCH (10:32)
[2017-07-16] MEDS: PREGABALIN 100 MG CAPSULE PO SCH ×2 (10:32→21:15)
--- NOTE | 2017-07-16 13:29 | PN ---
S Progress Note (SOAP) Subjective: requests motrin 800 for menstrual cramps because that is the only medication that works for her, volaterin is not enough discussed the risks of high dose motrin including ulcers, bleeding etc, patient states understanding of risks and agrees to plan of 2 doses of 800 mg of motrin with protonix for pain. patient will either receive motrin or volaterin, not both for the day
[2017-07-16] MEDS: ALBUTEROL SO4 18 GM HFA INHALER IH PRN (13:39)
[2017-07-16] MEDS: hydrOXYzine HCL 25 MG TABLET (FP) PO SCH (21:15)
[2017-07-16] MEDS: THIAMINE HCL 100 MG TABLET (FP) PO SCH (21:16)
[2017-07-16] MEDS: risperiDONE 0.25 MG TABLET (FP) PO SCH (21:16)
[2017-07-17] MEDS ORDERED: PT OWN MED DRAWER 7, Y5N ONE ×2 (06:39→16:47)
[2017-07-17] MEDS: metroNIDAZOLE 250 MG TABLET PO SCH ×3 (06:52→21:08)
[2017-07-17] MEDS: FERROUS SO4 300 MG/5 ML ORAL SOLN UNIT DOSE CUPS PO SCH ×3 (07:02→16:59)
[2017-07-17] MEDS: LITHIUM CARBONATE 300 MG CAPSULE (FP) PO SCH ×2 (09:07→21:09)
[2017-07-17] MEDS: PREGABALIN 100 MG CAPSULE PO SCH ×2 (09:08→21:08)
[2017-07-17] MEDS: ELVITEG/COB/EMTRI/TENOF (GENVOYA) TABLET (NF) PO SCH (09:08)
[2017-07-17] MEDS: MESALAMINE PO SCH (09:09)
[2017-07-17] MEDS: PRENATAL VITAMINS W/ FOLIC ACID TABLET (FP) PO SCH (09:09)
[2017-07-17] MEDS: NYSTATIN 100,000 UNIT/GM TOPICAL CREAM 15 GM TUBE TP SCH ×2 (09:09→21:06)
[2017-07-17] MEDS: PANTOPRAZOLE 40 MG TABLET (FP) PO SCH (09:11)
[2017-07-17] MEDS: IBUPROFEN 400 MG TABLET (FP) PO SCH (09:11)
[2017-07-17] MEDS: DICLOFENAC SODIUM 75 MG TABLET.DR PO SCH (09:13)
[2017-07-17] MEDS: NICOTINE POLACRILEX 4 MG GUM BUC PRN ×4 (09:13→21:10)
[2017-07-17] MEDS: HYDROCORTISONE 2.5% TOPICAL CREAM 30 GM TUBE RC SCH ×2 (09:50→21:06)
[2017-07-17] MEDS ORDERED: IBUPROFEN 400 MG TABLET (FP) PO ONE (10:00)
[2017-07-17] MEDS: risperiDONE 0.25 MG TABLET (FP) PO SCH (21:08)
[2017-07-17] MEDS: THIAMINE HCL 100 MG TABLET (FP) PO SCH (21:09)
[2017-07-17] MEDS: hydrOXYzine HCL 25 MG TABLET (FP) PO SCH (21:09)
[2017-07-17] MEDS: MINERAL OIL/PETROLAT/WATER TOPICAL CREAM 113 GM JAR TP PRN (21:09)
[2017-07-18] MEDS: metroNIDAZOLE 250 MG TABLET PO SCH ×3 (06:29→21:09)
[2017-07-18] MEDS: NICOTINE POLACRILEX 4 MG GUM BUC PRN ×4 (06:31→17:53)
[2017-07-18] MEDS: FERROUS SO4 300 MG/5 ML ORAL SOLN UNIT DOSE CUPS PO SCH ×3 (07:07→17:45)
[2017-07-18] MEDS: ALBUTEROL SO4 18 GM HFA INHALER IH PRN (10:00)
[2017-07-18] MEDS: NYSTATIN 100,000 UNIT/GM TOPICAL CREAM 15 GM TUBE TP SCH ×2 (10:01→21:09)
[2017-07-18] MEDS: HYDROCORTISONE 2.5% TOPICAL CREAM 30 GM TUBE RC SCH ×2 (10:01→21:08)
[2017-07-18] MEDS: PRENATAL VITAMINS W/ FOLIC ACID TABLET (FP) PO SCH (10:02)
[2017-07-18] MEDS: ELVITEG/COB/EMTRI/TENOF (GENVOYA) TABLET (NF) PO SCH (10:02)
[2017-07-18] MEDS: LITHIUM CARBONATE 300 MG CAPSULE (FP) PO SCH ×2 (10:02→21:09)
[2017-07-18] MEDS: PREGABALIN 100 MG CAPSULE PO SCH ×2 (10:02→21:09)
[2017-07-18] MEDS: DICLOFENAC SODIUM 75 MG TABLET.DR PO SCH (10:03)
[2017-07-18] MEDS: PANTOPRAZOLE 40 MG TABLET (FP) PO SCH (10:03)
[2017-07-18] MEDS: IBUPROFEN 400 MG TABLET (FP) PO SCH (10:04)
[2017-07-18] MEDS: MESALAMINE PO SCH (10:04)
[2017-07-18] MEDS ORDERED: PT OWN MED DRAWER 7, Y5N ONE (16:37)
[2017-07-18] MEDS: risperiDONE 0.25 MG TABLET (FP) PO SCH (21:09)
[2017-07-18] MEDS: hydrOXYzine HCL 25 MG TABLET (FP) PO SCH (21:09)
[2017-07-18] MEDS: THIAMINE HCL 100 MG TABLET (FP) PO SCH (21:09)
[2017-07-19] MEDS: metroNIDAZOLE 250 MG TABLET PO SCH ×3 (06:21→21:14)
[2017-07-19] MEDS: NICOTINE POLACRILEX 4 MG GUM BUC PRN ×4 (06:21→17:35)
[2017-07-19] MEDS: FERROUS SO4 300 MG/5 ML ORAL SOLN UNIT DOSE CUPS PO SCH ×3 (07:00→17:45)
[2017-07-19] MEDS: ELVITEG/COB/EMTRI/TENOF (GENVOYA) TABLET (NF) PO SCH (10:08)
[2017-07-19] MEDS: HYDROCORTISONE 2.5% TOPICAL CREAM 30 GM TUBE RC SCH ×2 (10:08→21:14)
[2017-07-19] MEDS: PREGABALIN 100 MG CAPSULE PO SCH ×2 (10:09→21:15)
[2017-07-19] MEDS: LITHIUM CARBONATE 300 MG CAPSULE (FP) PO SCH ×2 (10:09→21:13)
[2017-07-19] MEDS: DICLOFENAC SODIUM 75 MG TABLET.DR PO SCH (10:09)
[2017-07-19] MEDS: PRENATAL VITAMINS W/ FOLIC ACID TABLET (FP) PO SCH (10:09)
[2017-07-19] MEDS: NYSTATIN 100,000 UNIT/GM TOPICAL CREAM 15 GM TUBE TP SCH ×2 (10:10→21:15)
[2017-07-19] MEDS: MESALAMINE PO SCH (10:10)
[2017-07-19] MEDS: hydrOXYzine HCL 25 MG TABLET (FP) PO SCH (21:13)
[2017-07-19] MEDS ORDERED: PT OWN MED DRAWER 7, Y5N ONE ×2 (21:13→21:16)
[2017-07-19] MEDS: THIAMINE HCL 100 MG TABLET (FP) PO SCH (21:13)
[2017-07-19] MEDS: risperiDONE 0.25 MG TABLET (FP) PO SCH (22:30)
[2017-07-20] MEDS ORDERED: PT OWN MED DRAWER 7, Y5N ONE ×5 (03:17→12:14)
[2017-07-20] MEDS: metroNIDAZOLE 250 MG TABLET PO SCH ×3 (06:45→21:30)
[2017-07-20] MEDS: NICOTINE POLACRILEX 4 MG GUM BUC PRN ×3 (06:47→12:59)
[2017-07-20] MEDS: FERROUS SO4 300 MG/5 ML ORAL SOLN UNIT DOSE CUPS PO SCH ×3 (07:13→17:41)
[2017-07-20] MEDS: LITHIUM CARBONATE 300 MG CAPSULE (FP) PO SCH ×2 (10:02→21:30)
[2017-07-20] MEDS: ELVITEG/COB/EMTRI/TENOF (GENVOYA) TABLET (NF) PO SCH (10:02)
[2017-07-20] MEDS: PREGABALIN 100 MG CAPSULE PO SCH ×2 (10:02→21:30)
[2017-07-20] MEDS: DICLOFENAC SODIUM 75 MG TABLET.DR PO SCH (10:02)
[2017-07-20] MEDS: MESALAMINE PO SCH (10:03)
[2017-07-20] MEDS: HYDROCORTISONE 2.5% TOPICAL CREAM 30 GM TUBE RC SCH ×2 (10:03→21:32)
[2017-07-20] MEDS: NYSTATIN 100,000 UNIT/GM TOPICAL CREAM 15 GM TUBE TP SCH ×2 (10:03→21:32)
[2017-07-20] MEDS: PRENATAL VITAMINS W/ FOLIC ACID TABLET (FP) PO SCH (10:04)
[2017-07-20] MEDS: hydrOXYzine HCL 25 MG TABLET (FP) PO SCH (21:30)
[2017-07-20] MEDS: THIAMINE HCL 100 MG TABLET (FP) PO SCH (21:32)
[2017-07-20] MEDS: risperiDONE 0.25 MG TABLET (FP) PO SCH (21:32)
[2017-07-21] MEDS: metroNIDAZOLE 250 MG TABLET PO SCH ×3 (06:42→21:25)
[2017-07-21] MEDS: NICOTINE POLACRILEX 4 MG GUM BUC PRN ×4 (06:44→21:27)
[2017-07-21] MEDS: FERROUS SO4 300 MG/5 ML ORAL SOLN UNIT DOSE CUPS PO SCH ×3 (07:05→17:25)
[2017-07-21] MEDS: LITHIUM CARBONATE 300 MG CAPSULE (FP) PO SCH ×2 (10:17→21:24)
[2017-07-21] MEDS: HYDROCORTISONE 2.5% TOPICAL CREAM 30 GM TUBE RC SCH ×2 (10:17→21:26)
[2017-07-21] MEDS: PRENATAL VITAMINS W/ FOLIC ACID TABLET (FP) PO SCH (10:18)
[2017-07-21] MEDS: ELVITEG/COB/EMTRI/TENOF (GENVOYA) TABLET (NF) PO SCH (10:18)
[2017-07-21] MEDS: PREGABALIN 100 MG CAPSULE PO SCH ×2 (10:18→21:25)
[2017-07-21] MEDS: NYSTATIN 100,000 UNIT/GM TOPICAL CREAM 15 GM TUBE TP SCH ×2 (10:19→21:26)
[2017-07-21] MEDS: DICLOFENAC SODIUM 75 MG TABLET.DR PO SCH (10:19)
[2017-07-21] MEDS: MESALAMINE PO SCH (10:19)
[2017-07-21] MEDS: MINERAL OIL/PETROLAT/WATER TOPICAL CREAM 113 GM JAR TP PRN (10:20)
--- NOTE | 2017-07-21 13:42 | PN ---
[facility] Progress Note (SOAP) Subjective: Patient reports h/o ulcerative colitis and has been taking apriso at home. She has been refusing apriso while admitted. As per patient, she does not want to take apriso while hospitalized because she is getting to many pills right now and wants to wait until she gets home so that she can take apriso at the time she wants to take it. She does not want the administration time to be adjusted and only wants to take it when she gets home. She c/o her ankles swollen since she returned from [facility] in which she was dx with C. diff and placed on flagyl. She denies any diarrhea and has been asymptomatic. Patient aware of good hand hygiene in washing hands frequently with soap and water. Patient got up and left interview with principal technical writer as she didn't want to hear anything else about her refusal of apriso. Objective: 07/21/17 13:42 Last Vital Signs Temp Pulse Resp BP Pulse Ox 98.1 F 82 18 103/70 07/21/17 07:22 07/21/17 07:22 07/21/17 07:22 07/21/17 07:22 PE: Extrem: ankles mildly swollen, R>L Laboratory Tests 07/15/17 07/15/17 07:40 07:40 WBC 6.1 RBC 3.41 L Hgb 9.3 L Hct 29.0 L MCV 85.0 MCH 27.4 MCHC 32.2 RDW 16.3 H Plt Count 631 H D MPV 7.6 Neutrophils % 74.2 Lymphocytes % 15.3 D Monocytes % 9.0 Eosinophils % 1.2 Basophils % 0.3 Sodium 138 Potassium 3.6 Chloride 108 H Carbon Dioxide 21 Anion Gap 9 BUN 3 L D Creatinine 0.6 Creat Clearance w eGFR > 60 Random Glucose 167 H D Calcium 8.4 L Total Bilirubin 0.5 D AST 9 L ALT 14 Alkaline Phosphatase 65 Total Protein 6.8 Albumin 2.2 L Labs noted Assessment: 07/21/17 13:43 Patient with h/o ulcerative colitis and refusing her medication; c/o ankle swelling Plan: Ulcerative colitis: encouraged apriso, encouraged to drink lots of water, follow up with your PCP within 1 week post discharge Acute edema of ankles: encouraged to elevate extremities on pillows/blankets while in bed, avoid long standing, continue to monitor
[2017-07-21] MEDS: THIAMINE HCL 100 MG TABLET (FP) PO SCH (21:24)
[2017-07-21] MEDS: hydrOXYzine HCL 25 MG TABLET (FP) PO SCH (21:25)
[2017-07-21] MEDS: risperiDONE 0.25 MG TABLET (FP) PO SCH (21:26)
[2017-07-22] MEDS: metroNIDAZOLE 250 MG TABLET PO SCH ×3 (06:38→21:17)
[2017-07-22] MEDS: NICOTINE POLACRILEX 4 MG GUM BUC PRN ×4 (06:39→17:34)
[2017-07-22] MEDS: FERROUS SO4 300 MG/5 ML ORAL SOLN UNIT DOSE CUPS PO SCH ×3 (07:11→17:34)
[2017-07-22] MEDS ORDERED: PT OWN MED DRAWER 7, Y5N ONE (08:40)
[2017-07-22] MEDS: ELVITEG/COB/EMTRI/TENOF (GENVOYA) TABLET (NF) PO SCH (10:04)
[2017-07-22] MEDS: HYDROCORTISONE 2.5% TOPICAL CREAM 30 GM TUBE RC SCH ×2 (10:04→21:17)
[2017-07-22] MEDS: LITHIUM CARBONATE 300 MG CAPSULE (FP) PO SCH ×2 (10:04→21:17)
[2017-07-22] MEDS: PREGABALIN 100 MG CAPSULE PO SCH ×2 (10:05→21:17)
[2017-07-22] MEDS: NYSTATIN 100,000 UNIT/GM TOPICAL CREAM 15 GM TUBE TP SCH ×2 (10:05→21:19)
[2017-07-22] MEDS: PRENATAL VITAMINS W/ FOLIC ACID TABLET (FP) PO SCH (10:05)
[2017-07-22] MEDS: MESALAMINE PO SCH (10:05)
[2017-07-22] MEDS: DICLOFENAC SODIUM 75 MG TABLET.DR PO SCH (10:06)
[2017-07-22] MEDS: CYCLOBENZAPRINE HCL 10 MG TABLET (FP) PO PRN ×2 (14:52→23:00)
--- NOTE | 2017-07-22 15:20 | PN ---
S Progress Note (SOAP) Subjective: Patient seen for c/o swelling in her legs. Patient was previously seen for said complaint. She reports taking voltaren and lyrica for over 2 years and never had this problem. As per patient, the swelling improved whenever she elevates her legs but it never completely subsided. She would like to discontinue voltaren and start prn muscle relaxant in the meantime until seen by her PCP. Patient made aware that voltaren and lyrica can both cause peripheral edema. She denies sob or chest pain. Objective: 07/22/17 15:27 Last Vital Signs Temp Pulse Resp BP Pulse Ox 98.3 F 84 18 107/74 07/22/17 07:29 07/22/17 07:29 07/22/17 07:29 07/22/17 07:29 PE: Extrem: ankles mildly swollen R>L and scant swelling to top of feet, no edema to legs Laboratory Tests 07/15/17 07/15/17 07:40 07:40 WBC 6.1 RBC 3.41 L Hgb 9.3 L Hct 29.0 L MCV 85.0 MCH 27.4 MCHC 32.2 RDW 16.3 H Plt Count 631 H D MPV 7.6 Neutrophils % 74.2 Lymphocytes % 15.3 D Monocytes % 9.0 Eosinophils % 1.2 Basophils % 0.3 Sodium 138 Potassium 3.6 Chloride 108 H Carbon Dioxide 21 Anion Gap 9 BUN 3 L D Creatinine 0.6 Creat Clearance w eGFR > 60 Random Glucose 167 H D Calcium 8.4 L Total Bilirubin 0.5 D AST 9 L ALT 14 Alkaline Phosphatase 65 Total Protein 6.8 Albumin 2.2 L Labs noted Assessment: 07/22/17 15:33 Patient seen for swelling in ankles most likely medication related (volataren or lyrica) Plan: Edema of ankles: elevate legs while in bed, avoid long standing, d/c voltaren, start flexeril 10mg PO TID PRN patient's request due to pain in feet and neuropathy as per patient. Follow up with PCP post discharge for medication adjustment.
[2017-07-22] MEDS: hydrOXYzine HCL 25 MG TABLET (FP) PO SCH (21:17)
[2017-07-22] MEDS: THIAMINE HCL 100 MG TABLET (FP) PO SCH (21:17)
[2017-07-22] MEDS: risperiDONE 0.25 MG TABLET (FP) PO SCH (21:19)
[2017-07-23] MEDS ORDERED: PT OWN MED DRAWER 7, Y5N ONE ×3 (03:08→19:49)
[2017-07-23] MEDS: metroNIDAZOLE 250 MG TABLET PO SCH ×3 (06:43→21:34)
[2017-07-23] MEDS: NICOTINE POLACRILEX 4 MG GUM BUC PRN ×5 (06:44→23:57)
[2017-07-23] MEDS: FERROUS SO4 300 MG/5 ML ORAL SOLN UNIT DOSE CUPS PO SCH ×3 (07:09→17:54)
[2017-07-23] MEDS: CYCLOBENZAPRINE HCL 10 MG TABLET (FP) PO PRN ×2 (07:57→22:56)
[2017-07-23] MEDS: ELVITEG/COB/EMTRI/TENOF (GENVOYA) TABLET (NF) PO SCH (10:24)
[2017-07-23] MEDS: LITHIUM CARBONATE 300 MG CAPSULE (FP) PO SCH ×2 (10:24→21:34)
[2017-07-23] MEDS: PRENATAL VITAMINS W/ FOLIC ACID TABLET (FP) PO SCH (10:25)
[2017-07-23] MEDS: HYDROCORTISONE 2.5% TOPICAL CREAM 30 GM TUBE RC SCH ×2 (10:25→22:25)
[2017-07-23] MEDS: PREGABALIN 100 MG CAPSULE PO SCH ×2 (10:25→21:34)
[2017-07-23] MEDS: MESALAMINE PO SCH (10:25)
[2017-07-23] MEDS: NYSTATIN 100,000 UNIT/GM TOPICAL CREAM 15 GM TUBE TP SCH ×2 (10:25→22:26)
[2017-07-23] MEDS: IBUPROFEN 400 MG TABLET (FP) PO PRN (17:51)
[2017-07-23] MEDS: hydrOXYzine HCL 25 MG TABLET (FP) PO SCH (21:34)
[2017-07-23] MEDS: THIAMINE HCL 100 MG TABLET (FP) PO SCH (21:34)
[2017-07-23] MEDS: risperiDONE 0.25 MG TABLET (FP) PO SCH (21:34)
[2017-07-24] MEDS ORDERED: PT OWN MED DRAWER 7, Y5N ONE ×3 (05:37→12:02)
[2017-07-24] MEDS: metroNIDAZOLE 250 MG TABLET PO SCH ×3 (06:33→21:33)
[2017-07-24] MEDS: NICOTINE POLACRILEX 4 MG GUM BUC PRN ×5 (06:34→21:36)
[2017-07-24] MEDS: FERROUS SO4 300 MG/5 ML ORAL SOLN UNIT DOSE CUPS PO SCH ×3 (07:07→17:16)
[2017-07-24 07:27] VITALS: TEMP 97.9
[2017-07-24] MEDS: PRENATAL VITAMINS W/ FOLIC ACID TABLET (FP) PO SCH (10:04)
[2017-07-24] MEDS: LITHIUM CARBONATE 300 MG CAPSULE (FP) PO SCH ×2 (10:04→21:33)
[2017-07-24] MEDS: HYDROCORTISONE 2.5% TOPICAL CREAM 30 GM TUBE RC SCH ×2 (10:04→21:33)
[2017-07-24] MEDS: PREGABALIN 100 MG CAPSULE PO SCH ×2 (10:04→21:33)
[2017-07-24] MEDS: NYSTATIN 100,000 UNIT/GM TOPICAL CREAM 15 GM TUBE TP SCH ×2 (10:04→21:34)
[2017-07-24] MEDS: ELVITEG/COB/EMTRI/TENOF (GENVOYA) TABLET (NF) PO SCH (10:05)
[2017-07-24] MEDS: MESALAMINE PO SCH (10:05)
[2017-07-24] MEDS: MINERAL OIL/PETROLAT/WATER TOPICAL CREAM 113 GM JAR TP PRN (10:06)
[2017-07-24] MEDS: IBUPROFEN 400 MG TABLET (FP) PO PRN (10:08)
[2017-07-24] MEDS: CYCLOBENZAPRINE HCL 10 MG TABLET (FP) PO PRN ×2 (10:08→21:37)
[2017-07-24] MEDS: THIAMINE HCL 100 MG TABLET (FP) PO SCH (21:32)
[2017-07-24] MEDS: hydrOXYzine HCL 25 MG TABLET (FP) PO SCH (21:33)
[2017-07-24] MEDS: risperiDONE 0.25 MG TABLET (FP) PO SCH (21:35)
[2017-07-25] MEDS ORDERED: PT OWN MED DRAWER 7, Y5N ONE ×2 (05:43→08:26)
[2017-07-25] MEDS: metroNIDAZOLE 250 MG TABLET PO SCH (06:47)
[2017-07-25] MEDS: NICOTINE POLACRILEX 4 MG GUM BUC PRN ×2 (06:50→09:19)
[2017-07-25 07:38] VITALS: BP 113/80; PULSE 76
[2017-07-25] MEDS: FERROUS SO4 300 MG/5 ML ORAL SOLN UNIT DOSE CUPS PO SCH (08:04)
--- NOTE | 2017-07-25 08:59 | PN ---
[facility] Progress Note Note: was called by nurse for discharge order as patient requested to be discharge today, her scheduled day tomorrow. As per medical staff patient has her own medications and does not need a scripts. Order for discharge placed, patient is stable for discharge.
[2017-07-25] MEDS: HYDROCORTISONE 2.5% TOPICAL CREAM 30 GM TUBE RC SCH (09:17)
[2017-07-25] MEDS: LITHIUM CARBONATE 300 MG CAPSULE (FP) PO SCH (09:17)
[2017-07-25] MEDS: NYSTATIN 100,000 UNIT/GM TOPICAL CREAM 15 GM TUBE TP SCH (09:18)
[2017-07-25] MEDS: PRENATAL VITAMINS W/ FOLIC ACID TABLET (FP) PO SCH (09:18)
[2017-07-25] MEDS: MESALAMINE PO SCH (09:18)
[2017-07-25] MEDS: PREGABALIN 100 MG CAPSULE PO SCH (09:18)
[2017-07-25] MEDS: CYCLOBENZAPRINE HCL 10 MG TABLET (FP) PO PRN (09:19)
[2017-07-25] MEDS: ELVITEG/COB/EMTRI/TENOF (GENVOYA) TABLET (NF) PO SCH (09:23)
== END 2017-07-25 09:55 | disposition home or self-care (01) | DRG 895 ==
LOC: YASAS 19:55 → Y3E 19:57
PROVIDERS: ADMIT Psychiatry & Neurology Psychiatry; ATTEND Psychiatry & Neurology Psychiatry
PROC: HZ42ZZZ Group Counseling for Substance Abuse Treatment, Cognitive-Behavioral (ICD-10-PCS; principal; 2017-07-13)
DX: F10.10 Alcohol abuse, uncomplicated (principal); F14.20 Cocaine dependence, uncomplicated; K51.90 Ulcerative colitis, unspecified, without complications; F31.9 Bipolar disorder, unspecified; J45.909 Unspecified asthma, uncomplicated; M25.471 Effusion, right ankle; Z21 Asymptomatic human immunodeficiency virus [HIV] infection status
CPT/HCPCS: 36415; 80053; 85025